=== PATIENT | male | born 1970 | race Hispanic/Latino ===

== ENCOUNTER 2021-03-26 11:13 | Inpatient (IN) | payer SELFPAY ==
[~2021-03-26] VITALS: Ht 175.3 cm; Wt 125.4 kg
[2021-03-26] MEDS ORDERED: DEXAMETHASONE SOD PHOS 10 MG/1 ML VIAL IV ONE (11:30)
[2021-03-26] MEDS ORDERED: ACETAMINOPHEN 325 MG TAB PO ONE (11:45)
[2021-03-26] MEDS ORDERED: LACTATED RINGER'S 1,000 ML INJ ONE (11:45)
[2021-03-26 12:00] LABS: BASOPHILS % 0.2 % (0.0-1.0); HEMATOCRIT 39.2 % (38.2-49.6); HEMOGLOBIN 13.2 g/dL (14.0-18.0); LYMPHOCYTES # (AUTO) 1.3 (1.0-3.2); LYMPHOCYTES % 15.8 % (18.0-39.1); MEAN CORPUSCULAR HEMOGLOBIN 28.9 pg (28-32); MEAN CORPUSCULAR HGB CONC 33.7 g/dL (31-35); MONOCYTES # (AUTO) 0.5 (0.2-0.8); MONOCYTES % 6.6 % (4.4-11.3); NEUTROPHILS # (AUTO) 6.3 (2.1-6.9); NEUTROPHILS % 76.3 % (38.7-80.0); PLATELET COUNT 358 x10e3/uL (140-360); RED BLOOD COUNT 4.56 x10e6/uL (4.3-5.7); RED CELL DISTRIBUTION WIDTH 13.3 % (11.7-14.4)
[2021-03-26] MEDS ORDERED: ETOMIDATE 2 MG/ML 10 ML INJ IV ONE (12:13)
[2021-03-26] MEDS ORDERED: WATER STERILE 10 ML VIAL ONE (12:13)
[2021-03-26] MEDS ORDERED: MIDAZOLAM HCL 2 MG/2 ML VIAL ONE (12:13)
[2021-03-26] MEDS ORDERED: SUCCINYLCHOLINE CHLORIDE 20 MG/ML 10ML VIAL ONE (12:13)
[2021-03-26] MEDS ORDERED: VECURONIUM BROMIDE FOR INJ 20 MG VIAL ONE (12:13)
[2021-03-26 12:36] LABS: ANION GAP 19.6 mmol/L (8-16); CALCIUM 8.7 mg/dL (8.4-10.2); CREATININE, SERUM 0.79 mg/dL (0.72-1.25); POTASSIUM 3.6 mmol/L (3.5-5.1)
[2021-03-26] MEDS: SODIUM CHLORIDE 0.9% 1000ML 1,000 ML IV SCH (13:22)
[2021-03-26] MEDS ORDERED: IOPAMIDOL 370 MG/ML 200 ML INFUS..BTL INJ ONE ×2 (13:29→13:56)
[2021-03-26] MEDS ORDERED: SODIUM CHLORIDE 0.9% 50ML 50 ML ONE ×2 (13:29→13:55)
[2021-03-26] MEDS ORDERED: REMDESIVIR IV ONE ×2 (15:45→16:20)
[2021-03-26] MEDS ORDERED: SODIUM CHLORIDE 0.9% IV ONE (15:45)
[2021-03-26] MEDS ORDERED: ZOLPIDEM TARTRATE 5 MG TAB PO PRN (15:45)
[2021-03-26] MEDS ORDERED: SODIUM CHLORIDE 0.9% 100 ML ONE (16:20)
[2021-03-26] MEDS: CEFTRIAXONE 1 GM in SODIUM CHLORIDE 0.9% 50ML 50 ML IV SCH (17:17)
[2021-03-26] MEDS: ACETAMINOPHEN 325 MG TAB PO PRN (20:57)
[2021-03-26] MEDS: ENOXAPARIN SOD INJ 40 MG/0.4 ML SYR SC SCH (20:57)
[2021-03-27] MEDS: SODIUM CHLORIDE 0.9% 1000ML 1,000 ML IV SCH ×4 (03:45→19:45)
[2021-03-27 09:07] LABS: BASOPHILS % 0.1 % (0.0-1.0); HEMATOCRIT 34.6 % (38.2-49.6); HEMOGLOBIN 11.5 g/dL (14.0-18.0); LYMPHOCYTES # (AUTO) 1.2 (1.0-3.2); LYMPHOCYTES % 13.3 % (18.0-39.1); MEAN CORPUSCULAR HGB CONC 33.2 g/dL (31-35); MEAN CORPUSCULAR VOLUME 87.2 fL (81-99); MONOCYTES # (AUTO) 0.4 (0.2-0.8); MONOCYTES % 4.5 % (4.4-11.3); NEUTROPHILS # (AUTO) 7.4 (2.1-6.9); NEUTROPHILS % 81.2 % (38.7-80.0); PLATELET COUNT 357 x10e3/uL (140-360); RED BLOOD COUNT 3.97 x10e6/uL (4.3-5.7); RED CELL DISTRIBUTION WIDTH 13.5 % (11.7-14.4)
[2021-03-27] MEDS: ZINC SULFATE 220 MG CAP PO SCH (09:13)
[2021-03-27] MEDS: ENOXAPARIN SOD INJ 40 MG/0.4 ML SYR SC SCH ×2 (09:13→20:09)
[2021-03-27 09:35] LABS: ANION GAP 15.7 mmol/L (8-16); CALCIUM 9.3 mg/dL (8.4-10.2); CREATININE, SERUM 0.63 mg/dL (0.72-1.25); POTASSIUM 3.7 mmol/L (3.5-5.1)
[2021-03-27 10:43] LABS: BAND NEUTROPHILS % (MANUAL) 1 %; LYMPHOCYTES % (MANUAL) 10 % (19-48); MONOCYTES % (MANUAL) 4 % (3.4-9.0); NEUTROPHILS % (MANUAL) 83 % (40-74); PLATELET ESTIMATE ADEQUATE; PLATELET MORPHOLOGY COMMENT NORMAL; RBC MORPHOLOGY COMMENT NORMAL
[2021-03-27 10:48] LABS: CHOL/HDL RATIO 5.7 (3.9-4.7)
[2021-03-27] MEDS: REMDESIVIR 100MG 100 MG in SODIUM CHLORIDE 0.9% 100 ML IV SCH (15:11)
[2021-03-27] MEDS: CEFTRIAXONE 1 GM in SODIUM CHLORIDE 0.9% 50ML 50 ML IV SCH (15:11)
[2021-03-27] MEDS: DEXAMETHASONE SOD PHOS 10 MG/1 ML VIAL IV SCH (15:11)
[2021-03-27] MEDS: ACETAMINOPHEN 325 MG TAB PO PRN (15:12)
[2021-03-27] MEDS ORDERED: REMDESIVIR 100 MG IV SCH (15:45)
[2021-03-28] MEDS: SODIUM CHLORIDE 0.9% 1000ML 1,000 ML IV SCH ×3 (03:45→14:29)
[2021-03-28] MEDS: ZINC SULFATE 220 MG CAP PO SCH (09:00)
[2021-03-28] MEDS: ENOXAPARIN SOD INJ 40 MG/0.4 ML SYR SC SCH ×2 (09:00→20:31)
[2021-03-28] MEDS: DEXAMETHASONE SOD PHOS 10 MG/1 ML VIAL IV SCH (09:00)
[2021-03-28] MEDS: CEFTRIAXONE 1 GM in SODIUM CHLORIDE 0.9% 50ML 50 ML IV SCH (14:30)
[2021-03-28] MEDS: REMDESIVIR 100MG 100 MG in SODIUM CHLORIDE 0.9% 100 ML IV SCH (15:00)
[2021-03-28] MEDS: ACETAMINOPHEN 325 MG TAB PO PRN (19:14)
[2021-03-29] MEDS: ACETAMINOPHEN 325 MG TAB PO PRN ×2 (03:38→21:41)
[2021-03-29] MEDS: ONDANSETRON HCL INJ 2MG/ML 2ML 2 MG/ML VIAL IV PRN (05:19)
[2021-03-29 05:58] LABS: BASOPHILS % 0.2 % (0.0-1.0); EOSINOPHILS # (AUTO) 0.1 (0.0-0.4); EOSINOPHILS % 0.4 % (0.0-6.0); HEMATOCRIT 38.8 % (38.2-49.6); LYMPHOCYTES # (AUTO) 1.5 (1.0-3.2); LYMPHOCYTES % 12.9 % (18.0-39.1); MEAN CORPUSCULAR HEMOGLOBIN 28.8 pg (28-32); MEAN CORPUSCULAR HGB CONC 33.5 g/dL (31-35); MONOCYTES # (AUTO) 0.2 (0.2-0.8); NEUTROPHILS # (AUTO) 9.8 (2.1-6.9); NEUTROPHILS % 83.2 % (38.7-80.0); PLATELET COUNT 377 x10e3/uL (140-360); RED BLOOD COUNT 4.51 x10e6/uL (4.3-5.7); RED CELL DISTRIBUTION WIDTH 13.3 % (11.7-14.4)
[2021-03-29 06:15] LABS: ALBUMIN 2.6 g/dL (3.5-5.0); ALBUMIN/GLOBULIN RATIO 0.6 (0.8-2.0); ANION GAP 17.8 mmol/L (8-16); CALCIUM 9.3 mg/dL (8.4-10.2); CREATININE, SERUM 0.72 mg/dL (0.72-1.25); POTASSIUM 3.8 mmol/L (3.5-5.1)
[2021-03-29] MEDS ORDERED: ACETAMINOPHEN 325 MG TAB PO ONE (06:30)
[2021-03-29] MEDS: SODIUM CHLORIDE 0.9% 1000ML 1,000 ML IV SCH ×2 (09:32→21:33)
[2021-03-29] MEDS: ZINC SULFATE 220 MG CAP PO SCH (09:32)
[2021-03-29] MEDS: ENOXAPARIN SOD INJ 40 MG/0.4 ML SYR SC SCH ×2 (09:32→21:32)
[2021-03-29] MEDS: DEXAMETHASONE SOD PHOS 10 MG/1 ML VIAL IV SCH (09:32)
[2021-03-29] MEDS: REMDESIVIR 100MG 100 MG in SODIUM CHLORIDE 0.9% 100 ML IV SCH (14:49)
[2021-03-29] MEDS: CEFTRIAXONE 1 GM in SODIUM CHLORIDE 0.9% 50ML 50 ML IV SCH (15:49)
[2021-03-29 22:00] VITALS: BP 122/73
[2021-03-29 23:00] VITALS: BP 115/77
[2021-03-30] VITALS (25 sets, daily range): BP systolic 99–126; BP diastolic 55–81
[2021-03-30] MEDS: ONDANSETRON HCL INJ 2MG/ML 2ML 2 MG/ML VIAL IV PRN (05:48)
[2021-03-30 06:17] LABS: BASOPHILS % 0.1 % (0.0-1.0); EOSINOPHILS # (AUTO) 0.1 (0.0-0.4); EOSINOPHILS % 1.1 % (0.0-6.0); HEMATOCRIT 36.4 % (38.2-49.6); HEMOGLOBIN 12.2 g/dL (14.0-18.0); LYMPHOCYTES # (AUTO) 1.1 (1.0-3.2); LYMPHOCYTES % 13.1 % (18.0-39.1); MEAN CORPUSCULAR HEMOGLOBIN 28.6 pg (28-32); MEAN CORPUSCULAR HGB CONC 33.5 g/dL (31-35); MEAN CORPUSCULAR VOLUME 85.4 fL (81-99); MONOCYTES # (AUTO) 0.2 (0.2-0.8); NEUTROPHILS # (AUTO) 6.7 (2.1-6.9); NEUTROPHILS % 82.5 % (38.7-80.0); PLATELET COUNT 257 x10e3/uL (140-360); RED BLOOD COUNT 4.26 x10e6/uL (4.3-5.7); RED CELL DISTRIBUTION WIDTH 13.4 % (11.7-14.4)
[2021-03-30 07:15] LABS: CALCIUM 9.1 mg/dL (8.4-10.2); CREATININE, SERUM 0.63 mg/dL (0.72-1.25)
[2021-03-30] MEDS: ACETAMINOPHEN 325 MG TAB PO PRN (07:43)
[2021-03-30] MEDS: DEXAMETHASONE SOD PHOS 10 MG/1 ML VIAL IV SCH (08:55)
[2021-03-30] MEDS: ZINC SULFATE 220 MG CAP PO SCH (08:56)
[2021-03-30] MEDS: BARICITINIB 2 MG TABLET PO SCH (08:56)
[2021-03-30] MEDS: ENOXAPARIN SOD INJ 40 MG/0.4 ML SYR SC SCH ×2 (08:56→20:46)
[2021-03-30] MEDS ORDERED: GUAIFENESIN/CODEINE 10 ML CUP PO PRN (14:00)
[2021-03-30] MEDS: REMDESIVIR 100MG 100 MG in SODIUM CHLORIDE 0.9% 100 ML IV SCH (15:11)
[2021-03-30] MEDS: GUAIFENESIN/CODEINE 5 ML LIQD PO PRN ×2 (15:12→20:46)
[2021-03-30] MEDS: SODIUM CHLORIDE 0.9% 1000ML 1,000 ML IV SCH (15:12)
[2021-03-31] VITALS (25 sets, daily range): BP systolic 98–137; BP diastolic 59–83
[2021-03-31] MEDS: ONDANSETRON HCL INJ 2MG/ML 2ML 2 MG/ML VIAL IV PRN (03:38)
[2021-03-31] MEDS: ACETAMINOPHEN 325 MG TAB PO PRN ×2 (03:38→16:08)
[2021-03-31 05:12] LABS: BASOPHILS % 0.1 % (0.0-1.0); EOSINOPHILS # (AUTO) 0.2 (0.0-0.4); EOSINOPHILS % 1.4 % (0.0-6.0); HEMATOCRIT 36.2 % (38.2-49.6); LYMPHOCYTES # (AUTO) 1.3 (1.0-3.2); LYMPHOCYTES % 11.7 % (18.0-39.1); MEAN CORPUSCULAR HEMOGLOBIN 28.6 pg (28-32); MEAN CORPUSCULAR HGB CONC 33.1 g/dL (31-35); MEAN CORPUSCULAR VOLUME 86.2 fL (81-99); MONOCYTES # (AUTO) 0.3 (0.2-0.8); NEUTROPHILS # (AUTO) 8.9 (2.1-6.9); NEUTROPHILS % 82.5 % (38.7-80.0); PLATELET COUNT 215 x10e3/uL (140-360); RED CELL DISTRIBUTION WIDTH 13.4 % (11.7-14.4)
[2021-03-31 05:47] LABS: ANION GAP 15.9 mmol/L (8-16); CALCIUM 9.1 mg/dL (8.4-10.2); CREATININE, SERUM 0.65 mg/dL (0.72-1.25); POTASSIUM 3.9 mmol/L (3.5-5.1)
[2021-03-31] MEDS: DEXAMETHASONE SOD PHOS 10 MG/1 ML VIAL IV SCH (08:29)
[2021-03-31] MEDS: BARICITINIB 2 MG TABLET PO SCH (08:29)
[2021-03-31] MEDS: ENOXAPARIN SOD INJ 40 MG/0.4 ML SYR SC SCH ×2 (08:30→21:43)
[2021-03-31] MEDS ORDERED: ENOXAPARIN SOD INJ 40 MG/0.4 ML SYR SC SCH (10:00)
[2021-03-31] MEDS: FAMOTIDINE 20 MG/2 ML VIAL IV SCH ×2 (10:30→17:22)
[2021-03-31] MEDS: ZINC SULFATE 220 MG CAP PO SCH (10:30)
[2021-03-31] MEDS: GUAIFENESIN/CODEINE 5 ML LIQD PO PRN ×2 (11:21→22:01)
[2021-03-31] MEDS: SODIUM CHLORIDE 0.9% 1000ML 1,000 ML IV SCH (21:46)
[2021-04-01] VITALS (25 sets, daily range): BP systolic 97–126; BP diastolic 67–89
[2021-04-01] MEDS: ONDANSETRON HCL INJ 2MG/ML 2ML 2 MG/ML VIAL IV PRN (04:02)
[2021-04-01 06:08] LABS: BASOPHILS % 0.1 % (0.0-1.0); EOSINOPHILS # (AUTO) 0.2 (0.0-0.4); EOSINOPHILS % 1.1 % (0.0-6.0); HEMATOCRIT 38.8 % (38.2-49.6); HEMOGLOBIN 12.9 g/dL (14.0-18.0); LYMPHOCYTES # (AUTO) 1.5 (1.0-3.2); LYMPHOCYTES % 10.1 % (18.0-39.1); MEAN CORPUSCULAR HEMOGLOBIN 28.7 pg (28-32); MEAN CORPUSCULAR HGB CONC 33.2 g/dL (31-35); MEAN CORPUSCULAR VOLUME 86.2 fL (81-99); MONOCYTES # (AUTO) 0.4 (0.2-0.8); MONOCYTES % 2.9 % (4.4-11.3); NEUTROPHILS # (AUTO) 12.6 (2.1-6.9); NEUTROPHILS % 84.2 % (38.7-80.0); PLATELET COUNT 223 x10e3/uL (140-360); RED CELL DISTRIBUTION WIDTH 13.2 % (11.7-14.4)
[2021-04-01 06:41] LABS: ALBUMIN 2.3 g/dL (3.5-5.0); ALBUMIN/GLOBULIN RATIO 0.5 (0.8-2.0); ANION GAP 15.5 mmol/L (8-16); CALCIUM 8.9 mg/dL (8.4-10.2); CREATININE, SERUM 0.61 mg/dL (0.72-1.25); POTASSIUM 3.5 mmol/L (3.5-5.1)
[2021-04-01] MEDS: BARICITINIB 2 MG TABLET PO SCH (09:00)
[2021-04-01] MEDS: ZINC SULFATE 220 MG CAP PO SCH (10:25)
[2021-04-01] MEDS: ENOXAPARIN SOD INJ 40 MG/0.4 ML SYR SC SCH ×2 (10:25→20:15)
[2021-04-01] MEDS: FAMOTIDINE 20 MG/2 ML VIAL IV SCH ×2 (10:25→16:11)
[2021-04-01] MEDS: DEXAMETHASONE SOD PHOS 10 MG/1 ML VIAL IV SCH (10:25)
[2021-04-01] MEDS: ACETAMINOPHEN 325 MG TAB PO PRN ×2 (15:02→20:20)
[2021-04-01] MEDS: SODIUM CHLORIDE 0.9% 1000ML 1,000 ML IV SCH (16:09)
[2021-04-02] VITALS (24 sets, daily range): BP systolic 101–128; BP diastolic 57–81
[2021-04-02] MEDS: ACETAMINOPHEN 325 MG TAB PO PRN (05:30)
[2021-04-02 05:52] LABS: BASOPHILS % 0.2 % (0.0-1.0); EOSINOPHILS # (AUTO) 0.1 (0.0-0.4); EOSINOPHILS % 0.8 % (0.0-6.0); HEMATOCRIT 37.4 % (38.2-49.6); HEMOGLOBIN 12.4 g/dL (14.0-18.0); LYMPHOCYTES # (AUTO) 1.3 (1.0-3.2); LYMPHOCYTES % 10.9 % (18.0-39.1); MEAN CORPUSCULAR HEMOGLOBIN 28.8 pg (28-32); MEAN CORPUSCULAR HGB CONC 33.2 g/dL (31-35); MEAN CORPUSCULAR VOLUME 86.8 fL (81-99); MONOCYTES # (AUTO) 0.3 (0.2-0.8); MONOCYTES % 2.3 % (4.4-11.3); NEUTROPHILS # (AUTO) 10.2 (2.1-6.9); NEUTROPHILS % 84.8 % (38.7-80.0); PLATELET COUNT 210 x10e3/uL (140-360); RED BLOOD COUNT 4.31 x10e6/uL (4.3-5.7); RED CELL DISTRIBUTION WIDTH 13.2 % (11.7-14.4)
[2021-04-02 06:20] LABS: ALBUMIN 2.2 g/dL (3.5-5.0); ALBUMIN/GLOBULIN RATIO 0.5 (0.8-2.0); ANION GAP 16.8 mmol/L (8-16); CALCIUM 9.2 mg/dL (8.4-10.2); CREATININE, SERUM 0.6 mg/dL (0.72-1.25); POTASSIUM 3.8 mmol/L (3.5-5.1)
[2021-04-02] MEDS: FAMOTIDINE 20 MG/2 ML VIAL IV SCH ×2 (09:00→16:02)
[2021-04-02] MEDS: ENOXAPARIN SOD INJ 40 MG/0.4 ML SYR SC SCH ×2 (09:00→20:18)
[2021-04-02] MEDS: ZINC SULFATE 220 MG CAP PO SCH (09:00)
[2021-04-02] MEDS: BARICITINIB 2 MG TABLET PO SCH (09:00)
[2021-04-02] MEDS: DEXAMETHASONE SOD PHOS 10 MG/1 ML VIAL IV SCH (09:00)
[2021-04-03] VITALS (24 sets, daily range): BP systolic 90–129; BP diastolic 62–80
[2021-04-03] MEDS: GUAIFENESIN/CODEINE 5 ML LIQD PO PRN (00:01)
[2021-04-03] MEDS: ACETAMINOPHEN 325 MG TAB PO PRN ×2 (00:01→06:34)
[2021-04-03 05:44] LABS: BASOPHILS % 0.2 % (0.0-1.0); EOSINOPHILS # (AUTO) 0.1 (0.0-0.4); EOSINOPHILS % 0.5 % (0.0-6.0); HEMATOCRIT 37.6 % (38.2-49.6); HEMOGLOBIN 12.9 g/dL (14.0-18.0); LYMPHOCYTES # (AUTO) 1.4 (1.0-3.2); LYMPHOCYTES % 10.9 % (18.0-39.1); MEAN CORPUSCULAR HEMOGLOBIN 29.3 pg (28-32); MEAN CORPUSCULAR HGB CONC 34.3 g/dL (31-35); MEAN CORPUSCULAR VOLUME 85.3 fL (81-99); MONOCYTES # (AUTO) 0.4 (0.2-0.8); MONOCYTES % 2.8 % (4.4-11.3); NEUTROPHILS % 84.3 % (38.7-80.0); PLATELET COUNT 195 x10e3/uL (140-360); RED BLOOD COUNT 4.41 x10e6/uL (4.3-5.7); RED CELL DISTRIBUTION WIDTH 13.2 % (11.7-14.4)
[2021-04-03 06:11] LABS: ALBUMIN 2.1 g/dL (3.5-5.0); ALBUMIN/GLOBULIN RATIO 0.4 (0.8-2.0); ANION GAP 18.9 mmol/L (8-16); CALCIUM 9.2 mg/dL (8.4-10.2); CREATININE, SERUM 0.6 mg/dL (0.72-1.25); POTASSIUM 3.9 mmol/L (3.5-5.1)
[2021-04-03] MEDS: FAMOTIDINE 20 MG/2 ML VIAL IV SCH ×2 (08:32→17:01)
[2021-04-03] MEDS: BARICITINIB 2 MG TABLET PO SCH (08:32)
[2021-04-03] MEDS: ENOXAPARIN SOD INJ 40 MG/0.4 ML SYR SC SCH ×2 (08:32→19:56)
[2021-04-03] MEDS: DEXAMETHASONE SOD PHOS 10 MG/1 ML VIAL IV SCH (08:32)
[2021-04-03] MEDS: ZINC SULFATE 220 MG CAP PO SCH (08:32)
[2021-04-03] MEDS: ONDANSETRON HCL INJ 2MG/ML 2ML 2 MG/ML VIAL IV PRN ×2 (12:08→17:01)
[2021-04-04] VITALS (23 sets, daily range): BP systolic 98–112; BP diastolic 63–80
[2021-04-04 05:37] LABS: BASOPHILS % 0.1 % (0.0-1.0); EOSINOPHILS # (AUTO) 0.1 (0.0-0.4); EOSINOPHILS % 1.1 % (0.0-6.0); HEMATOCRIT 39.2 % (38.2-49.6); HEMOGLOBIN 12.9 g/dL (14.0-18.0); LYMPHOCYTES # (AUTO) 1.4 (1.0-3.2); LYMPHOCYTES % 16.5 % (18.0-39.1); MEAN CORPUSCULAR HEMOGLOBIN 28.4 pg (28-32); MEAN CORPUSCULAR HGB CONC 32.9 g/dL (31-35); MEAN CORPUSCULAR VOLUME 86.3 fL (81-99); MONOCYTES # (AUTO) 0.5 (0.2-0.8); MONOCYTES % 5.5 % (4.4-11.3); NEUTROPHILS # (AUTO) 6.4 (2.1-6.9); NEUTROPHILS % 75.4 % (38.7-80.0); PLATELET COUNT 207 x10e3/uL (140-360); RED BLOOD COUNT 4.54 x10e6/uL (4.3-5.7); RED CELL DISTRIBUTION WIDTH 13.2 % (11.7-14.4)
[2021-04-04 05:56] LABS: ALBUMIN 2.1 g/dL (3.5-5.0); ALBUMIN/GLOBULIN RATIO 0.4 (0.8-2.0); ANION GAP 15.7 mmol/L (8-16); CALCIUM 9.3 mg/dL (8.4-10.2); CREATININE, SERUM 0.62 mg/dL (0.72-1.25); POTASSIUM 3.7 mmol/L (3.5-5.1)
[2021-04-04] MEDS: ONDANSETRON HCL INJ 2MG/ML 2ML 2 MG/ML VIAL IV PRN (07:03)
[2021-04-04] MEDS: ACETAMINOPHEN 325 MG TAB PO PRN (07:03)
[2021-04-04] MEDS: DEXAMETHASONE SOD PHOS 10 MG/1 ML VIAL IV SCH (08:09)
[2021-04-04] MEDS: BARICITINIB 2 MG TABLET PO SCH (08:10)
[2021-04-04] MEDS: ENOXAPARIN SOD INJ 40 MG/0.4 ML SYR SC SCH ×2 (08:10→20:42)
[2021-04-04] MEDS: ZINC SULFATE 220 MG CAP PO SCH (08:10)
[2021-04-04] MEDS: FAMOTIDINE 20 MG/2 ML VIAL IV SCH ×2 (08:10→16:09)
[2021-04-04] MEDS: GUAIFENESIN/CODEINE 5 ML LIQD PO PRN (20:42)
[2021-04-05] VITALS (22 sets, daily range): BP systolic 85–154; BP diastolic 57–94
[2021-04-05] MEDS: FENTANYL 2000MCG/NS 250 250 ML IV SCH ×3 (07:41→22:44)
[2021-04-05] MEDS: MIDAZOLAM HCL 5MG/ML 10ML VIAL 100 ML IV PRN ×3 (07:42→18:56)
[2021-04-05] MEDS: ROCURONIUM 1250MG/NS 250 250 ML IV PRN (07:43)
[2021-04-05] MEDS ORDERED: LACTATED RINGER'S 500 ML INJ ONE (08:15)
[2021-04-05] MEDS: DEXAMETHASONE SOD PHOS 10 MG/1 ML VIAL IV SCH (08:32)
[2021-04-05] MEDS: FAMOTIDINE 20 MG/2 ML VIAL IV SCH ×2 (08:32→16:46)
[2021-04-05] MEDS: BARICITINIB 2 MG TABLET PO SCH (08:33)
[2021-04-05] MEDS: ENOXAPARIN SOD INJ 40 MG/0.4 ML SYR SC SCH ×2 (08:33→21:01)
[2021-04-05] MEDS: ZINC SULFATE 220 MG CAP PO SCH (08:33)
[2021-04-05 09:19] LABS: ABG PH 7.35 (7.35-7.45)
[2021-04-05 09:20] LABS: ABG HCO3 30 mmol/L (22-26); ABG PCO2 67 mmHg (35-45); ABG PO2 69 mmHg (80-105); ABG TCO2 32
[2021-04-05 10:40] LABS: BASOPHILS % 0.2 % (0.0-1.0); EOSINOPHILS # (AUTO) 0.1 (0.0-0.4); EOSINOPHILS % 0.5 % (0.0-6.0); HEMATOCRIT 40.9 % (38.2-49.6); HEMOGLOBIN 13.1 g/dL (14.0-18.0); LYMPHOCYTES # (AUTO) 0.8 (1.0-3.2); MEAN CORPUSCULAR HEMOGLOBIN 28.2 pg (28-32); MEAN CORPUSCULAR VOLUME 88.1 fL (81-99); MONOCYTES # (AUTO) 0.6 (0.2-0.8); MONOCYTES % 5.6 % (4.4-11.3); NEUTROPHILS # (AUTO) 9.2 (2.1-6.9); NEUTROPHILS % 85.1 % (38.7-80.0); PLATELET COUNT 185 x10e3/uL (140-360); RED BLOOD COUNT 4.64 x10e6/uL (4.3-5.7); RED CELL DISTRIBUTION WIDTH 13.4 % (11.7-14.4)
[2021-04-05 10:59] LABS: ANION GAP 16.4 mmol/L (8-16); CALCIUM 8.5 mg/dL (8.4-10.2); CREATININE, SERUM 0.65 mg/dL (0.72-1.25); POTASSIUM 3.4 mmol/L (3.5-5.1)
[2021-04-05] MEDS: NOREPINEPHRINE 8 MG/D5W 250 ML 250 ML IV SCH (16:46)
[2021-04-06] VITALS (26 sets, daily range): BP systolic 96–117; BP diastolic 65–83
[2021-04-06] MEDS: MIDAZOLAM HCL 5MG/ML 10ML VIAL 100 ML IV PRN ×2 (02:10→21:52)
[2021-04-06] MEDS: ROCURONIUM 1250MG/NS 250 250 ML IV PRN (05:00)
[2021-04-06 06:04] LABS: BASOPHILS % 0.2 % (0.0-1.0); EOSINOPHILS # (AUTO) 0.1 (0.0-0.4); EOSINOPHILS % 1.8 % (0.0-6.0); HEMATOCRIT 35.4 % (38.2-49.6); HEMOGLOBIN 11.7 g/dL (14.0-18.0); LYMPHOCYTES # (AUTO) 1.4 (1.0-3.2); MEAN CORPUSCULAR HEMOGLOBIN 29.5 pg (28-32); MEAN CORPUSCULAR HGB CONC 33.1 g/dL (31-35); MEAN CORPUSCULAR VOLUME 89.2 fL (81-99); MONOCYTES # (AUTO) 0.6 (0.2-0.8); MONOCYTES % 12.5 % (4.4-11.3); NEUTROPHILS # (AUTO) 2.9 (2.1-6.9); NEUTROPHILS % 55.7 % (38.7-80.0); PLATELET COUNT 169 x10e3/uL (140-360); RED BLOOD COUNT 3.97 x10e6/uL (4.3-5.7); RED CELL DISTRIBUTION WIDTH 13.4 % (11.7-14.4)
[2021-04-06 06:27] LABS: ALBUMIN/GLOBULIN RATIO 0.5 (0.8-2.0); ANION GAP 13.1 mmol/L (8-16); CREATININE, SERUM 0.58 mg/dL (0.72-1.25); POTASSIUM 4.1 mmol/L (3.5-5.1)
[2021-04-06] MEDS: FAMOTIDINE 20 MG/2 ML VIAL IV SCH ×2 (08:31→16:02)
[2021-04-06] MEDS: ZINC SULFATE 220 MG CAP PO SCH (08:31)
[2021-04-06] MEDS: BARICITINIB 2 MG TABLET PO SCH (08:31)
[2021-04-06] MEDS: ENOXAPARIN SOD INJ 40 MG/0.4 ML SYR SC SCH ×2 (08:31→21:12)
[2021-04-06 09:46] LABS: ABG HCO3 31 mmol/L (22-26); ABG PCO2 49 mmHg (35-45); ABG PH 7.41 (7.35-7.45); ABG PO2 83 mmHg (80-105); ABG TCO2 33
[2021-04-06] MEDS: FENTANYL 2000MCG/NS 250 250 ML IV SCH ×2 (15:04→22:45)
[2021-04-06] MEDS: NOREPINEPHRINE 8 MG/D5W 250 ML 250 ML IV SCH (15:05)
[2021-04-06] MEDS ORDERED: NOREPINEPHRINE 8 MG/D5W 250 ML 250 ML IV PRN (15:15)
[2021-04-06] MEDS ORDERED: DIATRIZOATE MEGL/DIATRIZOA SOD 30 ML BTL PO ONE (17:41)
[2021-04-07] VITALS (26 sets, daily range): BP systolic 89–161; BP diastolic 59–102
[2021-04-07] MEDS: ROCURONIUM 1250MG/NS 250 250 ML IV PRN (03:26)
[2021-04-07] MEDS: MIDAZOLAM HCL 5MG/ML 10ML VIAL 100 ML IV PRN ×3 (04:06→17:01)
[2021-04-07 06:58] LABS: BASOPHILS % 0.2 % (0.0-1.0); EOSINOPHILS # (AUTO) 0.2 (0.0-0.4); HEMATOCRIT 38.2 % (38.2-49.6); HEMOGLOBIN 12.4 g/dL (14.0-18.0); LYMPHOCYTES # (AUTO) 1.4 (1.0-3.2); LYMPHOCYTES % 24.2 % (18.0-39.1); MEAN CORPUSCULAR HEMOGLOBIN 28.9 pg (28-32); MEAN CORPUSCULAR HGB CONC 32.5 g/dL (31-35); MONOCYTES # (AUTO) 0.5 (0.2-0.8); MONOCYTES % 9.4 % (4.4-11.3); NEUTROPHILS # (AUTO) 3.5 (2.1-6.9); NEUTROPHILS % 60.9 % (38.7-80.0); PLATELET COUNT 221 x10e3/uL (140-360); RED BLOOD COUNT 4.29 x10e6/uL (4.3-5.7); RED CELL DISTRIBUTION WIDTH 13.3 % (11.7-14.4)
[2021-04-07 07:12] LABS: ALBUMIN 1.9 g/dL (3.5-5.0); ALBUMIN/GLOBULIN RATIO 0.4 (0.8-2.0); ANION GAP 15.7 mmol/L (8-16); CALCIUM 8.5 mg/dL (8.4-10.2); CREATININE, SERUM 0.58 mg/dL (0.72-1.25); POTASSIUM 3.7 mmol/L (3.5-5.1)
[2021-04-07 08:37] LABS: ABG PCO2 45 mmHg (35-45); ABG PH 7.44 (7.35-7.45); ABG PO2 97 mmHg (80-105)
[2021-04-07 08:38] LABS: ABG HCO3 30 mmol/L (22-26); ABG TCO2 31
[2021-04-07] MEDS: FAMOTIDINE 20 MG/2 ML VIAL IV SCH ×2 (10:32→16:59)
[2021-04-07] MEDS: BARICITINIB 2 MG TABLET PO SCH (10:33)
[2021-04-07] MEDS: ZINC SULFATE 220 MG CAP PO SCH (10:33)
[2021-04-07] MEDS: ENOXAPARIN SOD INJ 40 MG/0.4 ML SYR SC SCH ×2 (10:33→20:10)
[2021-04-07] MEDS: FENTANYL 2000MCG/NS 250 250 ML IV SCH ×2 (12:59→17:05)
[2021-04-08] VITALS (24 sets, daily range): BP systolic 84–172; BP diastolic 53–89
[2021-04-08] MEDS: ROCURONIUM 1250MG/NS 250 250 ML IV PRN (01:27)
[2021-04-08] MEDS: FENTANYL 2000MCG/NS 250 250 ML IV SCH ×2 (03:43→18:48)
[2021-04-08 06:24] LABS: BASOPHILS % 0.2 % (0.0-1.0); EOSINOPHILS # (AUTO) 0.2 (0.0-0.4); EOSINOPHILS % 3.1 % (0.0-6.0); HEMATOCRIT 38.8 % (38.2-49.6); HEMOGLOBIN 12.7 g/dL (14.0-18.0); LYMPHOCYTES # (AUTO) 1.3 (1.0-3.2); LYMPHOCYTES % 24.3 % (18.0-39.1); MEAN CORPUSCULAR HEMOGLOBIN 28.5 pg (28-32); MEAN CORPUSCULAR HGB CONC 32.7 g/dL (31-35); MONOCYTES # (AUTO) 0.7 (0.2-0.8); MONOCYTES % 12.6 % (4.4-11.3); NEUTROPHILS % 57.3 % (38.7-80.0); PLATELET COUNT 244 x10e3/uL (140-360); RED BLOOD COUNT 4.46 x10e6/uL (4.3-5.7); RED CELL DISTRIBUTION WIDTH 13.4 % (11.7-14.4)
[2021-04-08] MEDS: MIDAZOLAM HCL 5MG/ML 10ML VIAL 100 ML IV PRN ×3 (06:37→20:09)
[2021-04-08 06:48] LABS: ALBUMIN 1.8 g/dL (3.5-5.0); ALBUMIN/GLOBULIN RATIO 0.4 (0.8-2.0); CALCIUM 8.9 mg/dL (8.4-10.2); CREATININE, SERUM 0.55 mg/dL (0.72-1.25)
[2021-04-08 08:42] LABS: ABG HCO3 31 mmol/L (22-26); ABG PCO2 49 mmHg (35-45); ABG PO2 93 mmHg (80-105); ABG TCO2 32
[2021-04-08] MEDS: BARICITINIB 2 MG TABLET PO SCH (09:00)
[2021-04-08] MEDS: ZINC SULFATE 220 MG CAP PO SCH (09:00)
[2021-04-08] MEDS: ENOXAPARIN SOD INJ 40 MG/0.4 ML SYR SC SCH ×2 (09:04→20:34)
[2021-04-08] MEDS: FAMOTIDINE 20 MG/2 ML VIAL IV SCH ×2 (09:04→16:18)
[2021-04-09] VITALS (26 sets, daily range): BP systolic 91–123; BP diastolic 49–65
[2021-04-09] MEDS: MIDAZOLAM HCL 5MG/ML 10ML VIAL 100 ML IV PRN ×3 (04:17→19:03)
[2021-04-09 06:03] LABS: BASOPHILS % 0.4 % (0.0-1.0); EOSINOPHILS # (AUTO) 0.2 (0.0-0.4); EOSINOPHILS % 3.1 % (0.0-6.0); HEMATOCRIT 34.9 % (38.2-49.6); HEMOGLOBIN 11.9 g/dL (14.0-18.0); LYMPHOCYTES % 19.2 % (18.0-39.1); MEAN CORPUSCULAR HEMOGLOBIN 30.1 pg (28-32); MEAN CORPUSCULAR HGB CONC 34.1 g/dL (31-35); MEAN CORPUSCULAR VOLUME 88.4 fL (81-99); MONOCYTES # (AUTO) 0.6 (0.2-0.8); MONOCYTES % 11.8 % (4.4-11.3); NEUTROPHILS # (AUTO) 3.4 (2.1-6.9); NEUTROPHILS % 62.9 % (38.7-80.0); PLATELET COUNT 210 x10e3/uL (140-360); RED BLOOD COUNT 3.95 x10e6/uL (4.3-5.7); RED CELL DISTRIBUTION WIDTH 14.1 % (11.7-14.4)
[2021-04-09 06:32] LABS: ALBUMIN 1.6 g/dL (3.5-5.0); ALBUMIN/GLOBULIN RATIO 0.3 (0.8-2.0); ANION GAP 15.9 mmol/L (8-16); CALCIUM 8.6 mg/dL (8.4-10.2); CREATININE, SERUM 0.55 mg/dL (0.72-1.25); POTASSIUM 3.9 mmol/L (3.5-5.1)
[2021-04-09] MEDS: ENOXAPARIN SOD INJ 40 MG/0.4 ML SYR SC SCH ×2 (08:25→20:17)
[2021-04-09] MEDS: ZINC SULFATE 220 MG CAP PO SCH (08:25)
[2021-04-09] MEDS: FAMOTIDINE 20 MG/2 ML VIAL IV SCH ×2 (08:25→17:00)
[2021-04-09] MEDS: BARICITINIB 2 MG TABLET PO SCH (08:25)
[2021-04-09] MEDS: FENTANYL 2000MCG/NS 250 250 ML IV SCH (09:00)
[2021-04-09 09:08] LABS: ABG HCO3 27 mmol/L (22-26); ABG PCO2 37 mmHg (35-45); ABG PH 7.48 (7.35-7.45); ABG PO2 118 mmHg (80-105); ABG TCO2 28
[2021-04-09 13:30] LABS: ABG HCO3 30 mmol/L (22-26); ABG PCO2 47 mmHg (35-45); ABG PH 7.41 (7.35-7.45); ABG PO2 93 mmHg (80-105); ABG TCO2 31
[2021-04-10] VITALS (26 sets, daily range): BP systolic 93–170; BP diastolic 50–82
[2021-04-10] MEDS: MIDAZOLAM HCL 5MG/ML 10ML VIAL 100 ML IV PRN ×4 (00:14→17:00)
[2021-04-10] MEDS: ROCURONIUM 1250MG/NS 250 250 ML IV PRN (01:36)
[2021-04-10] MEDS: FENTANYL 2000MCG/NS 250 250 ML IV SCH ×3 (06:01→19:58)
[2021-04-10 06:31] LABS: BASOPHILS % 0.6 % (0.0-1.0); EOSINOPHILS # (AUTO) 0.3 (0.0-0.4); EOSINOPHILS % 4.3 % (0.0-6.0); HEMATOCRIT 33.7 % (38.2-49.6); HEMOGLOBIN 10.6 g/dL (14.0-18.0); LYMPHOCYTES # (AUTO) 1.2 (1.0-3.2); LYMPHOCYTES % 18.1 % (18.0-39.1); MEAN CORPUSCULAR HEMOGLOBIN 28.3 pg (28-32); MEAN CORPUSCULAR HGB CONC 31.5 g/dL (31-35); MEAN CORPUSCULAR VOLUME 89.9 fL (81-99); MONOCYTES # (AUTO) 0.7 (0.2-0.8); MONOCYTES % 10.9 % (4.4-11.3); NEUTROPHILS # (AUTO) 4.1 (2.1-6.9); NEUTROPHILS % 62.1 % (38.7-80.0); PLATELET COUNT 269 x10e3/uL (140-360); RED BLOOD COUNT 3.75 x10e6/uL (4.3-5.7)
[2021-04-10 07:13] LABS: ALBUMIN 1.6 g/dL (3.5-5.0); ALBUMIN/GLOBULIN RATIO 0.4 (0.8-2.0); ANION GAP 12.6 mmol/L (8-16); CALCIUM 8.5 mg/dL (8.4-10.2); CREATININE, SERUM 0.52 mg/dL (0.72-1.25); POTASSIUM 3.6 mmol/L (3.5-5.1)
[2021-04-10] MEDS ORDERED: ENOXAPARIN SOD INJ 40 MG/0.4 ML SYR SC SCH (09:00)
[2021-04-10 09:18] LABS: ABG HCO3 29 mmol/L (22-26); ABG PCO2 45 mmHg (35-45); ABG PH 7.42 (7.35-7.45); ABG PO2 119 mmHg (80-105); ABG TCO2 30
[2021-04-10] MEDS: BARICITINIB 2 MG TABLET PO SCH (09:41)
[2021-04-10] MEDS: FUROSEMIDE INJ 10 MG/ML 4 ML VIAL IV SCH ×2 (09:41→20:53)
[2021-04-10] MEDS: FAMOTIDINE 20 MG/2 ML VIAL IV SCH ×2 (09:41→17:00)
[2021-04-10] MEDS: ZINC SULFATE 220 MG CAP PO SCH (09:41)
[2021-04-10] MEDS: ALBUMIN 25% 25GM 100ML 0.25 GM/ML BTL IV SCH ×2 (09:41→17:33)
[2021-04-10 14:16] LABS: ABG HCO3 32 mmol/L (22-26); ABG PCO2 46 mmHg (35-45); ABG PH 7.45 (7.35-7.45); ABG PO2 78 mmHg (80-105); ABG TCO2 34
[2021-04-10] MEDS: ENOXAPARIN INJ 80 MG/0.8 ML SYR SC SCH (20:53)
[2021-04-10] MEDS: ACETAMINOPHEN 325 MG TAB PO PRN (23:12)
[2021-04-10] MEDS: PROPOFOL IV EMULSION 10MG/ML 100 ML IV PRN (23:54)
[2021-04-10] MEDS ORDERED: PROPOFOL IV EMULSION 10MG/ML 100 ML ONE (23:58)
[2021-04-11] VITALS (25 sets, daily range): BP systolic 101–161; BP diastolic 49–75
[2021-04-11] MEDS: PROPOFOL IV EMULSION 10MG/ML 100 ML IV PRN ×4 (00:21→17:15)
[2021-04-11] MEDS: ALBUMIN 25% 25GM 100ML 0.25 GM/ML BTL IV SCH (02:24)
[2021-04-11] MEDS: MIDAZOLAM HCL 5MG/ML 10ML VIAL 100 ML IV PRN ×5 (03:37→23:34)
[2021-04-11] MEDS: FENTANYL 2000MCG/NS 250 250 ML IV SCH ×4 (03:37→23:52)
[2021-04-11] MEDS: ROCURONIUM 1250MG/NS 250 250 ML IV PRN (04:21)
[2021-04-11 05:46] LABS: HEMATOCRIT 31.4 % (38.2-49.6); HEMOGLOBIN 10.1 g/dL (14.0-18.0); LYMPHOCYTES % 16.5 % (18.0-39.1); MEAN CORPUSCULAR HEMOGLOBIN 28.5 pg (28-32); MEAN CORPUSCULAR HGB CONC 32.2 g/dL (31-35); MEAN CORPUSCULAR VOLUME 88.7 fL (81-99); NEUTROPHILS % 65.5 % (38.7-80.0); PLATELET COUNT 274 x10e3/uL (140-360); RED BLOOD COUNT 3.54 x10e6/uL (4.3-5.7)
[2021-04-11 05:47] LABS: BASOPHILS % 0.4 % (0.0-1.0); EOSINOPHILS # (AUTO) 0.2 (0.0-0.4); LYMPHOCYTES # (AUTO) 1.3 (1.0-3.2); MONOCYTES # (AUTO) 0.8 (0.2-0.8); MONOCYTES % 9.7 % (4.4-11.3); NEUTROPHILS # (AUTO) 5.1 (2.1-6.9)
[2021-04-11 06:14] LABS: ALBUMIN 2.6 g/dL (3.5-5.0); ALBUMIN/GLOBULIN RATIO 0.6 (0.8-2.0); ANION GAP 12.4 mmol/L (8-16); CALCIUM 9.1 mg/dL (8.4-10.2); CREATININE, SERUM 0.6 mg/dL (0.72-1.25); POTASSIUM 3.4 mmol/L (3.5-5.1)
[2021-04-11] MEDS: ENOXAPARIN INJ 80 MG/0.8 ML SYR SC SCH ×2 (08:41→20:58)
[2021-04-11] MEDS: ZINC SULFATE 220 MG CAP PO SCH (08:41)
[2021-04-11] MEDS: FAMOTIDINE 20 MG/2 ML VIAL IV SCH ×2 (08:41→15:55)
[2021-04-11] MEDS: BARICITINIB 2 MG TABLET PO SCH (08:41)
[2021-04-11 09:00] LABS: ABG HCO3 36 mmol/L (22-26); ABG PCO2 64 mmHg (35-45); ABG PH 7.36 (7.35-7.45); ABG PO2 71 mmHg (80-105); ABG TCO2 37
[2021-04-11] MEDS ORDERED: POTASSIUM CHLORIDE 20MEQ/100ML 100 ML IV ONE (14:30)
[2021-04-11] MEDS ORDERED: DEXTROSE 50% SYRINGE 50 ML IV PRN (16:30)
[2021-04-11] MEDS ORDERED: INSULIN LISPRO 100 UNIT/1 ML 3ML VIAL SQ SCH (16:30)
[2021-04-11] MEDS: INSULIN LISPRO 100 UNIT/1 ML 3ML VIAL SQ SCH ×2 (17:50→23:55)
[2021-04-12] VITALS (27 sets, daily range): BP systolic 91–161; BP diastolic 50–81
[2021-04-12] MEDS: PROPOFOL IV EMULSION 10MG/ML 100 ML IV PRN ×6 (01:26→21:24)
[2021-04-12] MEDS: ACETAMINOPHEN 325 MG TAB PO PRN (03:20)
[2021-04-12 06:01] LABS: BASOPHILS # (AUTO) 0.1 (0.0-0.1); BASOPHILS % 0.6 % (0.0-1.0); EOSINOPHILS # (AUTO) 0.4 (0.0-0.4); HEMATOCRIT 31.6 % (38.2-49.6); HEMOGLOBIN 9.8 g/dL (14.0-18.0); LYMPHOCYTES # (AUTO) 1.6 (1.0-3.2); LYMPHOCYTES % 16.2 % (18.0-39.1); MEAN CORPUSCULAR HEMOGLOBIN 28.4 pg (28-32); MEAN CORPUSCULAR VOLUME 91.6 fL (81-99); MONOCYTES # (AUTO) 0.8 (0.2-0.8); NEUTROPHILS # (AUTO) 6.5 (2.1-6.9); NEUTROPHILS % 66.4 % (38.7-80.0); PLATELET COUNT 296 x10e3/uL (140-360); RED BLOOD COUNT 3.45 x10e6/uL (4.3-5.7)
[2021-04-12] MEDS: INSULIN LISPRO 100 UNIT/1 ML 3ML VIAL SQ SCH ×4 (06:02→23:56)
[2021-04-12 06:19] LABS: ALBUMIN 2.2 g/dL (3.5-5.0); ALBUMIN/GLOBULIN RATIO 0.5 (0.8-2.0); ANION GAP 11.8 mmol/L (8-16); CALCIUM 8.8 mg/dL (8.4-10.2); CREATININE, SERUM 0.56 mg/dL (0.72-1.25); POTASSIUM 3.8 mmol/L (3.5-5.1)
[2021-04-12] MEDS: FENTANYL 2000MCG/NS 250 250 ML IV SCH ×3 (06:49→20:30)
[2021-04-12 08:55] LABS: ABG HCO3 37 mmol/L (22-26); ABG PCO2 60 mmHg (35-45); ABG PH 7.39 (7.35-7.45); ABG PO2 71 mmHg (80-105); ABG TCO2 39
[2021-04-12] MEDS: ZINC SULFATE 220 MG CAP PO SCH (09:36)
[2021-04-12] MEDS: BARICITINIB 2 MG TABLET PO SCH (09:36)
[2021-04-12] MEDS: ENOXAPARIN INJ 80 MG/0.8 ML SYR SC SCH ×2 (09:36→21:23)
[2021-04-12] MEDS: FAMOTIDINE 20 MG/2 ML VIAL IV SCH ×2 (09:36→16:37)
[2021-04-12] MEDS: FUROSEMIDE INJ 10 MG/ML 4 ML VIAL IV SCH ×2 (12:24→21:23)
[2021-04-12] MEDS: ALBUMIN 25% 12.5GM 0.25 GM/ML BTL IV SCH ×2 (12:24→20:02)
[2021-04-12] MEDS: MIDAZOLAM HCL 5MG/ML 10ML VIAL 100 ML IV PRN ×2 (12:25→20:31)
[2021-04-13] VITALS (27 sets, daily range): BP systolic 115–139; BP diastolic 61–83
[2021-04-13] MEDS: PROPOFOL IV EMULSION 10MG/ML 100 ML IV PRN ×7 (01:28→22:30)
[2021-04-13] MEDS: MIDAZOLAM HCL 5MG/ML 10ML VIAL 100 ML IV PRN ×4 (01:55→16:44)
[2021-04-13] MEDS: ROCURONIUM 1250MG/NS 250 250 ML IV PRN (01:55)
[2021-04-13] MEDS: FENTANYL 2000MCG/NS 250 250 ML IV SCH ×4 (01:56→22:09)
[2021-04-13] MEDS: ALBUMIN 25% 12.5GM 0.25 GM/ML BTL IV SCH (03:37)
[2021-04-13] MEDS: INSULIN LISPRO 100 UNIT/1 ML 3ML VIAL SQ SCH ×3 (05:53→18:03)
[2021-04-13 06:21] LABS: BASOPHILS # (AUTO) 0.1 (0.0-0.1); BASOPHILS % 0.5 % (0.0-1.0); EOSINOPHILS # (AUTO) 0.5 (0.0-0.4); EOSINOPHILS % 3.7 % (0.0-6.0); HEMATOCRIT 34.2 % (38.2-49.6); HEMOGLOBIN 10.4 g/dL (14.0-18.0); LYMPHOCYTES # (AUTO) 1.7 (1.0-3.2); LYMPHOCYTES % 11.9 % (18.0-39.1); MEAN CORPUSCULAR HEMOGLOBIN 28.3 pg (28-32); MEAN CORPUSCULAR HGB CONC 30.4 g/dL (31-35); MEAN CORPUSCULAR VOLUME 93.2 fL (81-99); MONOCYTES % 6.9 % (4.4-11.3); NEUTROPHILS # (AUTO) 10.6 (2.1-6.9); PLATELET COUNT 373 x10e3/uL (140-360); RED BLOOD COUNT 3.67 x10e6/uL (4.3-5.7)
[2021-04-13 06:47] LABS: ALBUMIN 3.1 g/dL (3.5-5.0); ALBUMIN/GLOBULIN RATIO 0.6 (0.8-2.0); ANION GAP 13.7 mmol/L (8-16); CALCIUM 9.6 mg/dL (8.4-10.2); CREATININE, SERUM 0.59 mg/dL (0.72-1.25); POTASSIUM 3.7 mmol/L (3.5-5.1)
[2021-04-13] MEDS: FAMOTIDINE 20 MG/2 ML VIAL IV SCH ×2 (08:25→17:11)
[2021-04-13] MEDS: ENOXAPARIN INJ 80 MG/0.8 ML SYR SC SCH ×2 (08:25→20:57)
[2021-04-13] MEDS: ZINC SULFATE 220 MG CAP PO SCH (08:25)
[2021-04-13 08:34] LABS: ABG HCO3 44 mmol/L (22-26); ABG PCO2 91 mmHg (35-45); ABG PO2 65 mmHg (80-105); ABG TCO2 47
[2021-04-13] MEDS ORDERED: ALBUMIN 25% 25GM 100ML 0.25 GM/ML BTL IV SCH (10:00)
[2021-04-13] MEDS: FUROSEMIDE INJ 10 MG/ML 4 ML VIAL IV SCH ×2 (10:58→20:56)
[2021-04-13] MEDS: ALBUMIN 25% 25GM 100ML 100 ML IV SCH ×2 (10:59→17:12)
[2021-04-13] MEDS: PIPERACILLIN/TAZOBACTAM 3.375 GM in SODIUM CHLORIDE 0.9% 50ML 50 ML IV SCH ×3 (11:41→22:44)
[2021-04-13] MEDS: BISACODYL 10 MG SUPP PR PRN (12:00)
[2021-04-13] MEDS: ACETAMINOPHEN 325 MG TAB PO PRN ×2 (12:00→17:49)
[2021-04-13] MEDS: LACTULOSE SYRUP 20 GM/30 ML UDC PO PRN (12:27)
[2021-04-14] VITALS (24 sets, daily range): BP systolic 100–129; BP diastolic 62–71
[2021-04-14] MEDS: INSULIN LISPRO 100 UNIT/1 ML 3ML VIAL SQ SCH ×4 (00:02→17:52)
[2021-04-14] MEDS: ALBUMIN 25% 25GM 100ML 100 ML IV SCH (01:16)
[2021-04-14] MEDS: PROPOFOL IV EMULSION 10MG/ML 100 ML IV PRN ×5 (02:47→18:15)
[2021-04-14] MEDS: PIPERACILLIN/TAZOBACTAM 3.375 GM in SODIUM CHLORIDE 0.9% 50ML 50 ML IV SCH ×3 (05:31→17:50)
[2021-04-14 06:51] LABS: BASOPHILS # (AUTO) 0.1 (0.0-0.1); BASOPHILS % 0.3 % (0.0-1.0); EOSINOPHILS # (AUTO) 0.2 (0.0-0.4); EOSINOPHILS % 1.4 % (0.0-6.0); HEMATOCRIT 30.6 % (38.2-49.6); HEMOGLOBIN 9.3 g/dL (14.0-18.0); LYMPHOCYTES # (AUTO) 1.2 (1.0-3.2); LYMPHOCYTES % 7.6 % (18.0-39.1); MEAN CORPUSCULAR HEMOGLOBIN 28.2 pg (28-32); MEAN CORPUSCULAR HGB CONC 30.4 g/dL (31-35); MEAN CORPUSCULAR VOLUME 92.7 fL (81-99); MONOCYTES # (AUTO) 0.8 (0.2-0.8); MONOCYTES % 5.5 % (4.4-11.3); NEUTROPHILS # (AUTO) 12.3 (2.1-6.9); PLATELET COUNT 333 x10e3/uL (140-360)
[2021-04-14 07:12] LABS: ALBUMIN 3.5 g/dL (3.5-5.0); ALBUMIN/GLOBULIN RATIO 0.8 (0.8-2.0); ANION GAP 15.7 mmol/L (8-16); CALCIUM 9.8 mg/dL (8.4-10.2); CREATININE, SERUM 0.64 mg/dL (0.72-1.25); POTASSIUM 3.7 mmol/L (3.5-5.1)
[2021-04-14 07:54] LABS: ABG HCO3 48 mmol/L (22-26); ABG PCO2 78 mmHg (35-45); ABG PO2 74 mmHg (80-105); ABG TCO2 50
[2021-04-14] MEDS: ZINC SULFATE 220 MG CAP PO SCH (08:24)
[2021-04-14] MEDS: ENOXAPARIN INJ 80 MG/0.8 ML SYR SC SCH ×2 (08:24→21:28)
[2021-04-14] MEDS: FAMOTIDINE 20 MG/2 ML VIAL IV SCH ×2 (08:24→16:24)
[2021-04-14] MEDS: FENTANYL 2000MCG/NS 250 250 ML IV SCH ×2 (11:02→18:16)
[2021-04-14] MEDS: MIDAZOLAM HCL 5MG/ML 10ML VIAL 100 ML IV PRN (14:17)
[2021-04-15] VITALS (25 sets, daily range): BP systolic 80–121; BP diastolic 54–74
[2021-04-15] MEDS: PIPERACILLIN/TAZOBACTAM 3.375 GM in SODIUM CHLORIDE 0.9% 50ML 50 ML IV SCH ×4 (02:28→17:28)
[2021-04-15] MEDS: INSULIN LISPRO 100 UNIT/1 ML 3ML VIAL SQ SCH ×4 (02:29→17:56)
[2021-04-15 05:51] LABS: BASOPHILS # (AUTO) 0.1 (0.0-0.1); BASOPHILS % 0.7 % (0.0-1.0); EOSINOPHILS # (AUTO) 0.3 (0.0-0.4); EOSINOPHILS % 1.9 % (0.0-6.0); HEMATOCRIT 33.2 % (38.2-49.6); HEMOGLOBIN 9.6 g/dL (14.0-18.0); LYMPHOCYTES # (AUTO) 1.4 (1.0-3.2); LYMPHOCYTES % 9.2 % (18.0-39.1); MEAN CORPUSCULAR HGB CONC 28.9 g/dL (31-35); MEAN CORPUSCULAR VOLUME 96.8 fL (81-99); MONOCYTES # (AUTO) 1.1 (0.2-0.8); NEUTROPHILS # (AUTO) 11.8 (2.1-6.9); NEUTROPHILS % 75.5 % (38.7-80.0); PLATELET COUNT 407 x10e3/uL (140-360); RED BLOOD COUNT 3.43 x10e6/uL (4.3-5.7); RED CELL DISTRIBUTION WIDTH 14.3 % (11.7-14.4)
[2021-04-15 06:36] LABS: ALBUMIN/GLOBULIN RATIO 0.6 (0.8-2.0); ANION GAP 14.4 mmol/L (8-16); CREATININE, SERUM 0.7 mg/dL (0.72-1.25); POTASSIUM 4.4 mmol/L (3.5-5.1)
[2021-04-15] MEDS: MIDAZOLAM HCL 5MG/ML 10ML VIAL 100 ML IV PRN ×2 (06:50→12:20)
[2021-04-15] MEDS: PROPOFOL IV EMULSION 10MG/ML 100 ML IV PRN ×5 (06:50→21:19)
[2021-04-15] MEDS: FENTANYL 2000MCG/NS 250 250 ML IV SCH ×2 (08:00→14:57)
[2021-04-15] MEDS: FAMOTIDINE 20 MG/2 ML VIAL IV SCH ×2 (08:02→17:28)
[2021-04-15] MEDS: ENOXAPARIN INJ 80 MG/0.8 ML SYR SC SCH ×2 (08:03→20:19)
[2021-04-15] MEDS: ZINC SULFATE 220 MG CAP PO SCH (08:03)
[2021-04-15 09:00] LABS: ABG HCO3 48 mmol/L (22-26); ABG PCO2 120 mmHg (35-45); ABG PH 7.21 (7.35-7.45); ABG PO2 62 mmHg (80-105); ABG TCO2 > 50
[2021-04-15] MEDS ORDERED: ACETAZOLAMIDE SODIUM 500 MG/VIAL IV ONE (10:30)
[2021-04-15] MEDS: FUROSEMIDE INJ 10 MG/ML 4 ML VIAL IV SCH ×2 (10:46→20:19)
[2021-04-15 15:41] LABS: ABG PH 7.31 (7.35-7.45)
[2021-04-15 15:42] LABS: ABG HCO3 48 mmol/L (22-26); ABG PCO2 94 mmHg (35-45); ABG PO2 63 mmHg (80-105); ABG TCO2 > 50
[2021-04-16] VITALS (25 sets, daily range): BP systolic 85–115; BP diastolic 61–72
[2021-04-16] MEDS: PIPERACILLIN/TAZOBACTAM 3.375 GM in SODIUM CHLORIDE 0.9% 50ML 50 ML IV SCH ×4 (00:30→17:36)
[2021-04-16] MEDS: INSULIN LISPRO 100 UNIT/1 ML 3ML VIAL SQ SCH ×4 (00:31→17:40)
[2021-04-16 06:06] LABS: BASOPHILS # (AUTO) 0.1 (0.0-0.1); BASOPHILS % 0.8 % (0.0-1.0); EOSINOPHILS # (AUTO) 0.1 (0.0-0.4); EOSINOPHILS % 0.5 % (0.0-6.0); HEMATOCRIT 32.1 % (38.2-49.6); HEMOGLOBIN 9.1 g/dL (14.0-18.0); LYMPHOCYTES # (AUTO) 1.3 (1.0-3.2); LYMPHOCYTES % 7.9 % (18.0-39.1); MEAN CORPUSCULAR HEMOGLOBIN 27.8 pg (28-32); MEAN CORPUSCULAR HGB CONC 28.3 g/dL (31-35); MEAN CORPUSCULAR VOLUME 98.2 fL (81-99); MONOCYTES # (AUTO) 1.1 (0.2-0.8); MONOCYTES % 6.5 % (4.4-11.3); NEUTROPHILS # (AUTO) 12.7 (2.1-6.9); PLATELET COUNT 431 x10e3/uL (140-360); RED BLOOD COUNT 3.27 x10e6/uL (4.3-5.7); RED CELL DISTRIBUTION WIDTH 14.6 % (11.7-14.4)
[2021-04-16 06:36] LABS: ALBUMIN 2.7 g/dL (3.5-5.0); ALBUMIN/GLOBULIN RATIO 0.5 (0.8-2.0); CREATININE, SERUM 0.97 mg/dL (0.72-1.25)
[2021-04-16] MEDS: FAMOTIDINE 20 MG/2 ML VIAL IV SCH ×2 (07:53→16:48)
[2021-04-16] MEDS: ZINC SULFATE 220 MG CAP PO SCH (07:54)
[2021-04-16] MEDS: ENOXAPARIN INJ 80 MG/0.8 ML SYR SC SCH ×2 (07:54→21:57)
[2021-04-16] MEDS: MIDAZOLAM HCL 5MG/ML 10ML VIAL 100 ML IV PRN ×3 (08:00→18:25)
[2021-04-16 08:22] LABS: ABG HCO3 46 mmol/L (22-26); ABG PCO2 125 mmHg (35-45); ABG PH 7.17 (7.35-7.45); ABG PO2 75 mmHg (80-105); ABG TCO2 50
[2021-04-16] MEDS ORDERED: ALBUMIN 25% 25GM 100ML 0.25 GM/ML BTL IV SCH (09:00)
[2021-04-16] MEDS: PROPOFOL IV EMULSION 10MG/ML 100 ML IV PRN ×2 (09:21→13:50)
[2021-04-16] MEDS: ALBUMIN 25% 25GM 100ML 100 ML IV SCH ×2 (10:18→17:36)
[2021-04-16] MEDS: FUROSEMIDE INJ 10 MG/ML 4 ML VIAL IV SCH ×2 (10:18→21:57)
[2021-04-16] MEDS: FENTANYL 2000MCG/NS 250 250 ML IV SCH (12:09)
[2021-04-16] MEDS: ROCURONIUM 1250MG/NS 250 250 ML IV PRN (12:47)
[2021-04-16 13:19] LABS: ABG PH 7.22 (7.35-7.45)
[2021-04-16 13:20] LABS: ABG HCO3 45 mmol/L (22-26); ABG PCO2 110 mmHg (35-45); ABG PO2 96 mmHg (80-105); ABG TCO2 48
[2021-04-17] VITALS (24 sets, daily range): BP systolic 94–99; BP diastolic 59–64
[2021-04-17] MEDS: PIPERACILLIN/TAZOBACTAM 3.375 GM in SODIUM CHLORIDE 0.9% 50ML 50 ML IV SCH ×4 (01:29→18:47)
[2021-04-17] MEDS: INSULIN LISPRO 100 UNIT/1 ML 3ML VIAL SQ SCH ×4 (01:30→18:48)
[2021-04-17] MEDS: ALBUMIN 25% 25GM 100ML 100 ML IV SCH (02:43)
[2021-04-17 06:08] LABS: BASOPHILS # (AUTO) 0.1 (0.0-0.1); BASOPHILS % 0.6 % (0.0-1.0); EOSINOPHILS # (AUTO) 0.1 (0.0-0.4); EOSINOPHILS % 0.7 % (0.0-6.0); HEMATOCRIT 28.3 % (38.2-49.6); LYMPHOCYTES # (AUTO) 2.1 (1.0-3.2); LYMPHOCYTES % 13.4 % (18.0-39.1); MEAN CORPUSCULAR HGB CONC 28.3 g/dL (31-35); MONOCYTES % 6.6 % (4.4-11.3); NEUTROPHILS # (AUTO) 10.5 (2.1-6.9); NEUTROPHILS % 65.9 % (38.7-80.0); PLATELET COUNT 433 x10e3/uL (140-360); RED BLOOD COUNT 2.86 x10e6/uL (4.3-5.7); RED CELL DISTRIBUTION WIDTH 14.8 % (11.7-14.4)
[2021-04-17 07:06] LABS: ALBUMIN 3.2 g/dL (3.5-5.0); ALBUMIN/GLOBULIN RATIO 0.7 (0.8-2.0); ANION GAP 19.3 mmol/L (8-16); CALCIUM 9.9 mg/dL (8.4-10.2); CREATININE, SERUM 1.12 mg/dL (0.72-1.25); POTASSIUM 4.3 mmol/L (3.5-5.1)
[2021-04-17] MEDS: ENOXAPARIN INJ 80 MG/0.8 ML SYR SC SCH (08:09)
[2021-04-17] MEDS: ZINC SULFATE 220 MG CAP PO SCH (08:09)
[2021-04-17] MEDS: FAMOTIDINE 20 MG/2 ML VIAL IV SCH ×2 (08:09→18:00)
[2021-04-17 09:58] LABS: ABG PH 7.28 (7.35-7.45)
[2021-04-17] MEDS: FENTANYL 2000MCG/NS 250 250 ML IV SCH (09:58)
[2021-04-17 09:59] LABS: ABG HCO3 39 mmol/L (22-26); ABG PCO2 82 mmHg (35-45); ABG PO2 103 mmHg (80-105); ABG TCO2 41
[2021-04-17] MEDS: MIDAZOLAM HCL 5MG/ML 10ML VIAL 100 ML IV PRN ×2 (09:59→11:01)
[2021-04-17] MEDS: PROPOFOL IV EMULSION 10MG/ML 100 ML IV PRN ×2 (10:00→17:20)
[2021-04-18] VITALS (24 sets, daily range): BP systolic 84–104; BP diastolic 51–67
[2021-04-18] MEDS: ENOXAPARIN INJ 80 MG/0.8 ML SYR SC SCH ×3 (00:23→22:09)
[2021-04-18] MEDS: PIPERACILLIN/TAZOBACTAM 3.375 GM in SODIUM CHLORIDE 0.9% 50ML 50 ML IV SCH ×4 (00:23→17:35)
[2021-04-18] MEDS: INSULIN LISPRO 100 UNIT/1 ML 3ML VIAL SQ SCH ×4 (00:27→18:46)
[2021-04-18 05:41] LABS: BASOPHILS # (AUTO) 0.1 (0.0-0.1); BASOPHILS % 0.5 % (0.0-1.0); EOSINOPHILS # (AUTO) 0.1 (0.0-0.4); EOSINOPHILS % 0.7 % (0.0-6.0); HEMATOCRIT 28.5 % (38.2-49.6); HEMOGLOBIN 8.3 g/dL (14.0-18.0); LYMPHOCYTES # (AUTO) 2.3 (1.0-3.2); LYMPHOCYTES % 10.9 % (18.0-39.1); MEAN CORPUSCULAR HEMOGLOBIN 28.5 pg (28-32); MEAN CORPUSCULAR HGB CONC 29.1 g/dL (31-35); MEAN CORPUSCULAR VOLUME 97.9 fL (81-99); MONOCYTES # (AUTO) 1.4 (0.2-0.8); MONOCYTES % 6.4 % (4.4-11.3); NEUTROPHILS # (AUTO) 13.7 (2.1-6.9); NEUTROPHILS % 63.7 % (38.7-80.0); PLATELET COUNT 474 x10e3/uL (140-360); RED BLOOD COUNT 2.91 x10e6/uL (4.3-5.7); RED CELL DISTRIBUTION WIDTH 15.4 % (11.7-14.4)
[2021-04-18 06:07] LABS: ALBUMIN 2.9 g/dL (3.5-5.0); ALBUMIN/GLOBULIN RATIO 0.6 (0.8-2.0); ANION GAP 16.3 mmol/L (8-16); CALCIUM 9.8 mg/dL (8.4-10.2); CREATININE, SERUM 1.2 mg/dL (0.72-1.25); POTASSIUM 4.3 mmol/L (3.5-5.1)
[2021-04-18] MEDS: FAMOTIDINE 20 MG/2 ML VIAL IV SCH ×2 (08:15→17:35)
[2021-04-18] MEDS: ZINC SULFATE 220 MG CAP PO SCH (08:15)
[2021-04-18] MEDS: FENTANYL 2000MCG/NS 250 250 ML IV SCH (08:16)
[2021-04-18 08:17] LABS: BAND NEUTROPHILS % (MANUAL) 8 %; LYMPHOCYTES % (MANUAL) 11 % (19-48); METAMYELOCYTES % (MANUAL) 3 % (0-0); MONOCYTES % (MANUAL) 6 % (3.4-9.0); MYELOCYTES % (MANUAL) 2 % (0-0); NEUTROPHILS % (MANUAL) 70 % (40-74); NUCLEATED RED BLOOD CELLS 3; PLATELET ESTIMATE MODERATELY INCREASED; PLATELET MORPHOLOGY COMMENT FEW GIANT; POLYCHROMASIA FEW; RBC MORPHOLOGY COMMENT ABNORMAL
[2021-04-18 08:18] LABS: ANISOCYTOSIS SLIGHT
[2021-04-18] MEDS: PROPOFOL IV EMULSION 10MG/ML 100 ML IV PRN ×2 (08:18→18:48)
[2021-04-18 08:20] LABS: HYPOCHROMASIA SLIGHT
[2021-04-18] MEDS: MIDAZOLAM HCL 5MG/ML 10ML VIAL 100 ML IV PRN (08:20)
[2021-04-18 09:25] LABS: ABG HCO3 41 mmol/L (22-26); ABG PCO2 95 mmHg (35-45); ABG PH 7.24 (7.35-7.45); ABG PO2 86 mmHg (80-105); ABG TCO2 44
[2021-04-18] MEDS ORDERED: BISACODYL 10 MG SUPP PR ONE (13:30)
[2021-04-18] MEDS: FUROSEMIDE INJ 10 MG/ML 4 ML VIAL IV SCH ×2 (14:00→22:09)
[2021-04-18 14:31] LABS: INR 1.31; PROTHROMBIN TIME 16.5 seconds (11.9-14.5)
[2021-04-18 14:32] LABS: PARTIAL THROMBOPLASTIN TIME 36.7 seconds (23.8-35.5)
[2021-04-18] MEDS: INSULIN GLARGINE 100 UNITS/ML VIAL SQ SCH (22:10)
[2021-04-19] VITALS (20 sets, daily range): BP systolic 81–110; BP diastolic 46–76
[2021-04-19] MEDS: PIPERACILLIN/TAZOBACTAM 3.375 GM in SODIUM CHLORIDE 0.9% 50ML 50 ML IV SCH ×4 (00:52→19:10)
[2021-04-19] MEDS: INSULIN LISPRO 100 UNIT/1 ML 3ML VIAL SQ SCH ×4 (05:54→19:13)
[2021-04-19 07:13] LABS: BASOPHILS # (AUTO) 0.1 (0.0-0.1); BASOPHILS % 0.4 % (0.0-1.0); EOSINOPHILS # (AUTO) 0.2 (0.0-0.4); HEMATOCRIT 29.5 % (38.2-49.6); HEMOGLOBIN 8.4 g/dL (14.0-18.0); LYMPHOCYTES # (AUTO) 2.3 (1.0-3.2); LYMPHOCYTES % 11.3 % (18.0-39.1); MEAN CORPUSCULAR HGB CONC 28.5 g/dL (31-35); MEAN CORPUSCULAR VOLUME 98.3 fL (81-99); MONOCYTES # (AUTO) 1.1 (0.2-0.8); MONOCYTES % 5.3 % (4.4-11.3); NEUTROPHILS # (AUTO) 13.1 (2.1-6.9); NEUTROPHILS % 64.9 % (38.7-80.0); PLATELET COUNT 446 x10e3/uL (140-360); RED CELL DISTRIBUTION WIDTH 15.6 % (11.7-14.4)
[2021-04-19 07:50] LABS: ALBUMIN 2.7 g/dL (3.5-5.0); ALBUMIN/GLOBULIN RATIO 0.6 (0.8-2.0); ANION GAP 16.5 mmol/L (8-16); CALCIUM 9.9 mg/dL (8.4-10.2); CREATININE, SERUM 1.13 mg/dL (0.72-1.25); POTASSIUM 4.5 mmol/L (3.5-5.1)
[2021-04-19 08:41] LABS: ABG HCO3 40 mmol/L (22-26); ABG PCO2 94 mmHg (35-45); ABG PH 7.23 (7.35-7.45); ABG PO2 70 mmHg (80-105); ABG TCO2 42
[2021-04-19] MEDS: FENTANYL 2000MCG/NS 250 250 ML IV PRN (08:46)
[2021-04-19] MEDS: MIDAZOLAM HCL 5MG/ML 10ML VIAL 100 ML IV PRN (08:47)
[2021-04-19] MEDS: PROPOFOL IV EMULSION 10MG/ML 100 ML IV PRN (08:49)
[2021-04-19] MEDS: ZINC SULFATE 220 MG CAP PO SCH (09:28)
[2021-04-19] MEDS: ENOXAPARIN INJ 80 MG/0.8 ML SYR SC SCH ×2 (09:28→22:11)
[2021-04-19] MEDS: FAMOTIDINE 20 MG/2 ML VIAL IV SCH ×2 (09:28→19:10)
[2021-04-19] MEDS ORDERED: PROPOFOL IV EMULSION 50 ML IV PRN (10:00)
[2021-04-19] MEDS: ALBUMIN 25% 12.5GM 0.25 GM/ML BTL IV SCH ×2 (11:00→19:10)
[2021-04-19] MEDS: FUROSEMIDE INJ 10 MG/ML 4 ML VIAL IV SCH ×2 (11:00→22:11)
[2021-04-19 11:50] LABS: BAND NEUTROPHILS % (MANUAL) 7 %; EOSINOPHILS % (MANUAL) 2 % (0-7); LYMPHOCYTES % (MANUAL) 4 % (19-48); METAMYELOCYTES % (MANUAL) 4 % (0-0); MONOCYTES % (MANUAL) 5 % (3.4-9.0); MYELOCYTES % (MANUAL) 12 % (0-0); NEUTROPHILS % (MANUAL) 58 % (40-74); NUCLEATED RED BLOOD CELLS 1; PROMYELOCYTES % (MANUAL) 5 % (0-0)
[2021-04-19 11:51] LABS: PLATELET ESTIMATE ADEQUATE; PLATELET MORPHOLOGY COMMENT NORMAL
[2021-04-19 11:52] LABS: ANISOCYTOSIS SLIG; POIKILOCYTOSIS SLIGHT; POLYCHROMASIA FEW; RBC MORPHOLOGY COMMENT ABNORMAL
[2021-04-19] MEDS: NOREPINEPHRINE 8 MG/D5W 250 ML 250 ML IV SCH (13:50)
[2021-04-19] MEDS ORDERED: SODIUM CHLORIDE 0.9% 50ML 50 ML ONE (17:14)
[2021-04-19] MEDS ORDERED: IOPAMIDOL 370 MG/ML 200 ML INFUS..BTL INJ ONE (17:14)
[2021-04-19] MEDS: INSULIN GLARGINE 100 UNITS/ML VIAL SQ SCH (22:11)
[2021-04-20] VITALS (26 sets, daily range): BP systolic 83–110; BP diastolic 47–76
[2021-04-20] MEDS: PIPERACILLIN/TAZOBACTAM 3.375 GM in SODIUM CHLORIDE 0.9% 50ML 50 ML IV SCH ×2 (00:49→06:19)
[2021-04-20] MEDS: INSULIN LISPRO 100 UNIT/1 ML 3ML VIAL SQ SCH ×4 (00:50→18:43)
[2021-04-20 01:56] LABS: % IRON SATURATION 37 % (15-50); IRON 72 ug/dL (65-175); TOTAL IRON BINDING CAPACITY 193 ug/dL (261-478); TRANSFERRIN 138 mg/dL (174-364)
[2021-04-20] MEDS: ALBUMIN 25% 12.5GM 0.25 GM/ML BTL IV SCH (02:28)
[2021-04-20 06:30] LABS: BASOPHILS # (AUTO) 0.2 (0.0-0.1); BASOPHILS % 0.6 % (0.0-1.0); EOSINOPHILS # (AUTO) 0.2 (0.0-0.4); EOSINOPHILS % 0.7 % (0.0-6.0); HEMATOCRIT 27.3 % (38.2-49.6); HEMOGLOBIN 8.1 g/dL (14.0-18.0); LYMPHOCYTES # (AUTO) 2.7 (1.0-3.2); LYMPHOCYTES % 10.4 % (18.0-39.1); MEAN CORPUSCULAR HEMOGLOBIN 28.5 pg (28-32); MEAN CORPUSCULAR HGB CONC 29.7 g/dL (31-35); MEAN CORPUSCULAR VOLUME 96.1 fL (81-99); MONOCYTES # (AUTO) 2.1 (0.2-0.8); MONOCYTES % 8.1 % (4.4-11.3); NEUTROPHILS # (AUTO) 15.9 (2.1-6.9); NEUTROPHILS % 61.6 % (38.7-80.0); PLATELET COUNT 385 x10e3/uL (140-360); RED BLOOD COUNT 2.84 x10e6/uL (4.3-5.7); RED CELL DISTRIBUTION WIDTH 16.3 % (11.7-14.4)
[2021-04-20 06:50] LABS: ALBUMIN 3.3 g/dL (3.5-5.0); ALBUMIN/GLOBULIN RATIO 0.8 (0.8-2.0); ANION GAP 18.7 mmol/L (8-16); CALCIUM 9.6 mg/dL (8.4-10.2); CREATININE, SERUM 1.89 mg/dL (0.72-1.25); POTASSIUM 4.7 mmol/L (3.5-5.1)
[2021-04-20 08:23] LABS: ABG PCO2 84 mmHg (35-45); ABG PH 7.24 (7.35-7.45); ABG PO2 61 mmHg (80-105)
[2021-04-20 08:24] LABS: ABG HCO3 36 mmol/L (22-26); ABG TCO2 39
[2021-04-20] MEDS: ZINC SULFATE 220 MG CAP PO SCH (08:28)
[2021-04-20] MEDS: FAMOTIDINE 20 MG/2 ML VIAL IV SCH ×2 (08:28→16:39)
[2021-04-20] MEDS: ENOXAPARIN INJ 80 MG/0.8 ML SYR SC SCH (08:28)
[2021-04-20 10:59] LABS: BURR CELLS MARKED; EOSINOPHILS % (MANUAL) 2 % (0-7); HYPOCHROMASIA SLIGHT; LYMPHOCYTES % (MANUAL) 15 % (19-48); METAMYELOCYTES % (MANUAL) 4 % (0-0); MONOCYTES % (MANUAL) 6 % (3.4-9.0); MYELOCYTES % (MANUAL) 8 % (0-0); NEUTROPHILS % (MANUAL) 65 % (40-74)
[2021-04-20 11:00] LABS: PLATELET ESTIMATE ADEQUATE; PLATELET MORPHOLOGY COMMENT FEW LARGE; POLYCHROMASIA MODE; RBC MORPHOLOGY COMMENT ABNORMAL
[2021-04-20] MEDS: MIDAZOLAM HCL 5MG/ML 10ML VIAL 100 ML IV PRN (11:33)
[2021-04-20] MEDS: FENTANYL 2000MCG/NS 250 250 ML IV PRN (11:35)
[2021-04-20] MEDS: LINEZOLID 600 MG/D5W 300ML 300 ML IV SCH (12:47)
[2021-04-20] MEDS: METRONIDAZOLE 500MG/NS 100ML 100 ML IV SCH ×2 (12:48→20:30)
[2021-04-20] MEDS: FUROSEMIDE INJ 100 MG in SODIUM CHLORIDE 0.9% 100 ML 90 ML IV SCH (13:40)
[2021-04-20] MEDS: CEFEPIME 1 GM in SODIUM CHLORIDE 0.9% 50ML 50 ML IV SCH ×2 (14:11→18:00)
[2021-04-20] MEDS: NOREPINEPHRINE 8 MG/D5W 250 ML 250 ML IV SCH (20:29)
[2021-04-20] MEDS ORDERED: ENOXAPARIN INJ 80 MG/0.8 ML SYR SC SCH (21:00)
[2021-04-20] MEDS: INSULIN GLARGINE 100 UNITS/ML VIAL SQ SCH (22:40)
[2021-04-21] VITALS (28 sets, daily range): BP systolic 83–135; BP diastolic 49–76
[2021-04-21] MEDS: LINEZOLID 600 MG/D5W 300ML 300 ML IV SCH ×3 (00:19→23:14)
[2021-04-21] MEDS: INSULIN LISPRO 100 UNIT/1 ML 3ML VIAL SQ SCH ×4 (00:20→18:10)
[2021-04-21] MEDS: CEFEPIME 1 GM in SODIUM CHLORIDE 0.9% 50ML 50 ML IV SCH ×3 (02:14→16:48)
[2021-04-21] MEDS: BISACODYL 10 MG SUPP PR PRN (04:17)
[2021-04-21] MEDS: LACTULOSE SYRUP 20 GM/30 ML UDC PO PRN ×2 (04:17→11:34)
[2021-04-21] MEDS: METRONIDAZOLE 500MG/NS 100ML 100 ML IV SCH ×3 (04:17→21:44)
[2021-04-21] MEDS: FUROSEMIDE INJ 100 MG in SODIUM CHLORIDE 0.9% 100 ML 90 ML IV SCH ×3 (06:04→22:01)
[2021-04-21 06:21] LABS: BASOPHILS # (AUTO) 0.2 (0.0-0.1); BASOPHILS % 0.7 % (0.0-1.0); EOSINOPHILS # (AUTO) 0.3 (0.0-0.4); EOSINOPHILS % 0.9 % (0.0-6.0); HEMATOCRIT 28.7 % (38.2-49.6); HEMOGLOBIN 8.6 g/dL (14.0-18.0); LYMPHOCYTES # (AUTO) 2.4 (1.0-3.2); LYMPHOCYTES % 7.8 % (18.0-39.1); MEAN CORPUSCULAR HEMOGLOBIN 28.9 pg (28-32); MEAN CORPUSCULAR VOLUME 96.3 fL (81-99); MONOCYTES # (AUTO) 2.5 (0.2-0.8); MONOCYTES % 8.2 % (4.4-11.3); NEUTROPHILS # (AUTO) 18.4 (2.1-6.9); NEUTROPHILS % 59.6 % (38.7-80.0); PLATELET COUNT 394 x10e3/uL (140-360); RED BLOOD COUNT 2.98 x10e6/uL (4.3-5.7)
[2021-04-21 06:53] LABS: ALBUMIN/GLOBULIN RATIO 0.7 (0.8-2.0); ANION GAP 19.2 mmol/L (8-16); CALCIUM 9.3 mg/dL (8.4-10.2); CREATININE, SERUM 2.94 mg/dL (0.72-1.25); POTASSIUM 5.2 mmol/L (3.5-5.1)
[2021-04-21 08:49] LABS: ABG PH 7.04 (7.35-7.45)
[2021-04-21 08:50] LABS: ABG HCO3 34 mmol/L (22-26); ABG PCO2 124 mmHg (35-45); ABG PO2 70 mmHg (80-105); ABG TCO2 37
[2021-04-21] MEDS ORDERED: SODIUM BICARBONATE 8.4% SYRING 50 ML ONE ×2 (08:56→09:03)
[2021-04-21] MEDS: FENTANYL 2000MCG/NS 250 250 ML IV PRN ×2 (09:00→16:31)
[2021-04-21] MEDS: MIDAZOLAM HCL 5MG/ML 10ML VIAL 100 ML IV PRN ×2 (09:00→16:31)
[2021-04-21] MEDS: PROPOFOL IV EMULSION 10MG/ML 100 ML IV PRN (09:00)
[2021-04-21] MEDS ORDERED: HEPARIN 25,000 UNIT 1,500 UNIT in DEXTROSE 5% 250ML 250 ML IV SCH ×5 (09:30→15:00)
[2021-04-21] MEDS: NOREPINEPHRINE 8 MG/D5W 250 ML 250 ML IV SCH (11:30)
[2021-04-21] MEDS: FAMOTIDINE 20 MG/2 ML VIAL IV SCH ×2 (11:30→18:07)
[2021-04-21] MEDS: ZINC SULFATE 220 MG CAP PO SCH (11:30)
[2021-04-21 12:10] LABS: BAND NEUTROPHILS % (MANUAL) 5 %; LYMPHOCYTES % (MANUAL) 14 % (19-48); METAMYELOCYTES % (MANUAL) 2 % (0-0); MONOCYTES % (MANUAL) 15 % (3.4-9.0); MYELOCYTES % (MANUAL) 6 % (0-0); NEUTROPHILS % (MANUAL) 58 % (40-74); NUCLEATED RED BLOOD CELLS 15; PLATELET ESTIMATE ADEQUATE; PLATELET MORPHOLOGY COMMENT FEW LARGE; RBC MORPHOLOGY COMMENT NORMAL
[2021-04-21 12:11] LABS: HYPOCHROMASIA SLIGHT; POLYCHROMASIA FEW
[2021-04-21 12:31] LABS: ABG PH 7.15 (7.35-7.45)
[2021-04-21 12:32] LABS: ABG HCO3 33 mmol/L (22-26); ABG PCO2 95 mmHg (35-45); ABG PO2 63 mmHg (80-105); ABG TCO2 36
[2021-04-21 15:15] LABS: INR 1.66; PROTHROMBIN TIME 19.9 seconds (11.9-14.5)
[2021-04-21] MEDS ORDERED: PHE/SHARK LIVER OIL/COCOA BUT 24 EA SUPP RC PRN (15:15)
[2021-04-21] MEDS ORDERED: PHENYLEPH/SHARK OIL/MO/PETROL 30 GM OINT RC PRN (15:15)
[2021-04-21] MEDS ORDERED: MANNITOL 25% 12.5GM/50 ML VIAL IV PRN (16:00)
[2021-04-21] MEDS ORDERED: HEPARIN SOD (PORCINE) 1000 UNIT/ML SDV IV PRN (16:00)
[2021-04-21] MEDS ORDERED: SODIUM CHLORIDE 0.9% 1000ML 2,000 ML IV PRN (16:00)
[2021-04-21] MEDS ORDERED: HEPARIN SOD (PORCINE) 1000 UNIT/ML SDV ONE (18:27)
[2021-04-21] MEDS ORDERED: SODIUM BICARBONATE 8.4% INJ 50 ML SYR IV NR (19:25)
[2021-04-21] MEDS: INSULIN GLARGINE 100 UNITS/ML VIAL SQ SCH (21:46)
[2021-04-21] MEDS: HEPARIN 25,000 UNIT 1,500 UNIT in DEXTROSE 5% 250ML 250 ML IV SCH ×2 (21:48→22:59)
[2021-04-22] VITALS (28 sets, daily range): BP systolic 83–140; BP diastolic 52–78
[2021-04-22] MEDS: INSULIN LISPRO 100 UNIT/1 ML 3ML VIAL SQ SCH ×4 (00:56→19:10)
[2021-04-22] MEDS: CEFEPIME 1 GM in SODIUM CHLORIDE 0.9% 50ML 50 ML IV SCH ×3 (02:16→17:17)
[2021-04-22 04:31] LABS: BASOPHILS # (AUTO) 0.1 (0.0-0.1); BASOPHILS % 0.3 % (0.0-1.0); EOSINOPHILS # (AUTO) 0.5 (0.0-0.4); EOSINOPHILS % 1.6 % (0.0-6.0); HEMATOCRIT 27.4 % (38.2-49.6); HEMOGLOBIN 8.3 g/dL (14.0-18.0); LYMPHOCYTES # (AUTO) 3.4 (1.0-3.2); MEAN CORPUSCULAR HEMOGLOBIN 28.6 pg (28-32); MEAN CORPUSCULAR HGB CONC 30.3 g/dL (31-35); MEAN CORPUSCULAR VOLUME 94.5 fL (81-99); MONOCYTES # (AUTO) 2.7 (0.2-0.8); MONOCYTES % 8.1 % (4.4-11.3); NEUTROPHILS # (AUTO) 20.5 (2.1-6.9); NEUTROPHILS % 60.8 % (38.7-80.0); PLATELET COUNT 399 x10e3/uL (140-360); RED CELL DISTRIBUTION WIDTH 17.2 % (11.7-14.4)
[2021-04-22 04:47] LABS: ALBUMIN 2.7 g/dL (3.5-5.0); ALBUMIN/GLOBULIN RATIO 0.6 (0.8-2.0); ANION GAP 20.7 mmol/L (8-16); CALCIUM 8.9 mg/dL (8.4-10.2); CREATININE, SERUM 2.99 mg/dL (0.72-1.25); POTASSIUM 4.7 mmol/L (3.5-5.1)
[2021-04-22] MEDS: METRONIDAZOLE 500MG/NS 100ML 100 ML IV SCH ×3 (05:03→20:49)
[2021-04-22] MEDS: HEPARIN 25,000 UNIT 1,500 UNIT in DEXTROSE 5% 250ML 250 ML IV SCH (05:05)
[2021-04-22 08:59] LABS: ABG HCO3 30 mmol/L (22-26); ABG PCO2 84 mmHg (35-45); ABG PH 7.17 (7.35-7.45); ABG PO2 75 mmHg (80-105); ABG TCO2 33
[2021-04-22 10:26] LABS: EOSINOPHILS % (MANUAL) 2 % (0-7); LYMPHOCYTES % (MANUAL) 10 % (19-48); MONOCYTES % (MANUAL) 12 % (3.4-9.0); NEUTROPHILS % (MANUAL) 76 % (40-74); NUCLEATED RED BLOOD CELLS 23; PLATELET ESTIMATE ADEQUATE; PLATELET MORPHOLOGY COMMENT NORMAL; RBC MORPHOLOGY COMMENT NORMAL
[2021-04-22 10:28] LABS: HYPOCHROMASIA MODERATE; POLYCHROMASIA FEW
[2021-04-22] MEDS: FAMOTIDINE 20 MG/2 ML VIAL IV SCH ×2 (11:28→16:44)
[2021-04-22] MEDS: BALSAM PERU/CASTOR OIL 60 GM OINT...G. TP SCH (11:29)
[2021-04-22] MEDS: ZINC SULFATE 220 MG CAP PO SCH (11:29)
[2021-04-22] MEDS: LINEZOLID 600 MG/D5W 300ML 300 ML IV SCH (11:43)
[2021-04-22] MEDS: NOREPINEPHRINE 8 MG/D5W 250 ML 250 ML IV SCH (20:48)
[2021-04-22] MEDS: INSULIN GLARGINE 100 UNITS/ML VIAL SQ SCH (21:22)
[2021-04-23] VITALS (23 sets, daily range): BP systolic 83–129; BP diastolic 48–76
[2021-04-23] MEDS: CEFEPIME 1 GM in SODIUM CHLORIDE 0.9% 50ML 50 ML IV SCH ×3 (02:24→18:47)
[2021-04-23] MEDS: LINEZOLID 600 MG/D5W 300ML 300 ML IV SCH ×3 (02:24→23:47)
[2021-04-23] MEDS: METRONIDAZOLE 500MG/NS 100ML 100 ML IV SCH ×3 (04:24→21:08)
[2021-04-23] MEDS: INSULIN LISPRO 100 UNIT/1 ML 3ML VIAL SQ SCH ×4 (06:37→18:48)
[2021-04-23 06:45] LABS: BASOPHILS # (AUTO) 0.1 (0.0-0.1); BASOPHILS % 0.2 % (0.0-1.0); EOSINOPHILS # (AUTO) 0.6 (0.0-0.4); EOSINOPHILS % 1.9 % (0.0-6.0); HEMATOCRIT 26.9 % (38.2-49.6); HEMOGLOBIN 8.2 g/dL (14.0-18.0); LYMPHOCYTES # (AUTO) 4.3 (1.0-3.2); LYMPHOCYTES % 12.5 % (18.0-39.1); MEAN CORPUSCULAR HEMOGLOBIN 28.5 pg (28-32); MEAN CORPUSCULAR HGB CONC 30.5 g/dL (31-35); MEAN CORPUSCULAR VOLUME 93.4 fL (81-99); MONOCYTES # (AUTO) 2.9 (0.2-0.8); MONOCYTES % 8.5 % (4.4-11.3); NEUTROPHILS # (AUTO) 21.1 (2.1-6.9); NEUTROPHILS % 61.5 % (38.7-80.0); PLATELET COUNT 335 x10e3/uL (140-360); RED BLOOD COUNT 2.88 x10e6/uL (4.3-5.7); RED CELL DISTRIBUTION WIDTH 18.3 % (11.7-14.4)
[2021-04-23 07:12] LABS: ALBUMIN 2.4 g/dL (3.5-5.0); ALBUMIN/GLOBULIN RATIO 0.5 (0.8-2.0); ANION GAP 19.1 mmol/L (8-16); CALCIUM 8.9 mg/dL (8.4-10.2); CREATININE, SERUM 2.8 mg/dL (0.72-1.25); POTASSIUM 4.1 mmol/L (3.5-5.1)
[2021-04-23 09:02] LABS: ABG HCO3 31 mmol/L (22-26); ABG PCO2 80 mmHg (35-45); ABG PO2 65 mmHg (80-105); ABG TCO2 34
[2021-04-23 09:58] LABS: BAND NEUTROPHILS % (MANUAL) 4 %; EOSINOPHILS % (MANUAL) 4 % (0-7); LYMPHOCYTES % (MANUAL) 20 % (19-48); METAMYELOCYTES % (MANUAL) 4 % (0-0); MONOCYTES % (MANUAL) 3 % (3.4-9.0); MYELOCYTES % (MANUAL) 4 % (0-0); NEUTROPHILS % (MANUAL) 60 % (40-74); NUCLEATED RED BLOOD CELLS 42; PLATELET ESTIMATE ADEQUATE; PLATELET MORPHOLOGY COMMENT FEW GIANT; PROMYELOCYTES % (MANUAL) 1 % (0-0)
[2021-04-23 09:59] LABS: POLYCHROMASIA FEW; RBC MORPHOLOGY COMMENT NORMAL
[2021-04-23] MEDS: FAMOTIDINE 20 MG/2 ML VIAL IV SCH ×2 (11:10→16:50)
[2021-04-23] MEDS: BALSAM PERU/CASTOR OIL 60 GM OINT...G. TP SCH (11:10)
[2021-04-23] MEDS: ZINC SULFATE 220 MG CAP PO SCH (11:10)
[2021-04-23 13:22] LABS: INR 1.33; PROTHROMBIN TIME 16.7 seconds (11.9-14.5)
[2021-04-23] MEDS: NOREPINEPHRINE 8 MG/D5W 250 ML 250 ML IV SCH (16:50)
[2021-04-23] MEDS ORDERED: ALBUMIN 25% 25GM 100ML 0.25 GM/ML BTL IV ONE (20:30)
[2021-04-23 20:35] LABS: ABG PH 7.16 (7.35-7.45)
[2021-04-23 20:36] LABS: ABG HCO3 28 mmol/L (22-26); ABG PCO2 79 mmHg (35-45); ABG PO2 56 mmHg (80-105); ABG TCO2 30
[2021-04-23] MEDS: INSULIN GLARGINE 100 UNITS/ML VIAL SQ SCH (23:46)
[2021-04-23] MEDS: HEPARIN 25,000 UNIT 1,500 UNIT in DEXTROSE 5% 250ML 250 ML IV SCH (23:47)
[2021-04-24] VITALS (22 sets, daily range): BP systolic 97–129; BP diastolic 32–66
[2021-04-24] MEDS: CEFEPIME 1 GM in SODIUM CHLORIDE 0.9% 50ML 50 ML IV SCH ×3 (02:43→17:07)
[2021-04-24] MEDS ORDERED: SODIUM BICARBONATE 8.4% INJ 50 ML SYR IV STA (03:42)
[2021-04-24] MEDS: METRONIDAZOLE 500MG/NS 100ML 100 ML IV SCH ×3 (04:42→20:30)
[2021-04-24] MEDS: INSULIN LISPRO 100 UNIT/1 ML 3ML VIAL SQ SCH ×4 (05:57→18:10)
[2021-04-24 06:27] LABS: BASOPHILS # (AUTO) 0.1 (0.0-0.1); BASOPHILS % 0.3 % (0.0-1.0); EOSINOPHILS # (AUTO) 0.4 (0.0-0.4); EOSINOPHILS % 1.2 % (0.0-6.0); HEMATOCRIT 26.1 % (38.2-49.6); HEMOGLOBIN 8.3 g/dL (14.0-18.0); LYMPHOCYTES # (AUTO) 3.5 (1.0-3.2); LYMPHOCYTES % 10.8 % (18.0-39.1); MEAN CORPUSCULAR HEMOGLOBIN 28.9 pg (28-32); MEAN CORPUSCULAR HGB CONC 31.8 g/dL (31-35); MEAN CORPUSCULAR VOLUME 90.9 fL (81-99); MONOCYTES # (AUTO) 3.3 (0.2-0.8); MONOCYTES % 10.4 % (4.4-11.3); NEUTROPHILS # (AUTO) 20.8 (2.1-6.9); NEUTROPHILS % 64.6 % (38.7-80.0); PLATELET COUNT 305 x10e3/uL (140-360); RED BLOOD COUNT 2.87 x10e6/uL (4.3-5.7); RED CELL DISTRIBUTION WIDTH 19.2 % (11.7-14.4)
[2021-04-24 06:41] LABS: ALBUMIN 2.4 g/dL (3.5-5.0); ALBUMIN/GLOBULIN RATIO 0.5 (0.8-2.0); ANION GAP 22.7 mmol/L (8-16); CALCIUM 8.6 mg/dL (8.4-10.2); CREATININE, SERUM 3.48 mg/dL (0.72-1.25); POTASSIUM 4.7 mmol/L (3.5-5.1)
[2021-04-24 08:41] LABS: ABG HCO3 27 mmol/L (22-26); ABG PCO2 75 mmHg (35-45); ABG PH 7.16 (7.35-7.45); ABG PO2 75 mmHg (80-105); ABG TCO2 29
[2021-04-24] MEDS: FENTANYL 2000MCG/NS 250 250 ML IV PRN (10:30)
[2021-04-24 12:17] LABS: BAND NEUTROPHILS % (MANUAL) 2 %; EOSINOPHILS % (MANUAL) 1 % (0-7); LYMPHOCYTES % (MANUAL) 16 % (19-48); MONOCYTES % (MANUAL) 5 % (3.4-9.0); MYELOCYTES % (MANUAL) 2 % (0-0); NEUTROPHILS % (MANUAL) 72 % (40-74); NUCLEATED RED BLOOD CELLS 21; PLATELET ESTIMATE ADEQUATE
[2021-04-24 12:18] LABS: PLATELET MORPHOLOGY COMMENT NORMAL; RBC MORPHOLOGY COMMENT NORMAL
[2021-04-24] MEDS: FAMOTIDINE 20 MG/2 ML VIAL IV SCH ×2 (13:34→17:06)
[2021-04-24] MEDS: BALSAM PERU/CASTOR OIL 60 GM OINT...G. TP SCH (13:34)
[2021-04-24] MEDS: ZINC SULFATE 220 MG CAP PO SCH (13:34)
[2021-04-24] MEDS: NOREPINEPHRINE 8 MG/D5W 250 ML 250 ML IV SCH ×2 (15:05→21:06)
[2021-04-24] MEDS: PROPOFOL IV EMULSION 10MG/ML 100 ML IV PRN ×2 (15:06→20:15)
[2021-04-24] MEDS: LINEZOLID 600 MG/D5W 300ML 300 ML IV SCH ×2 (17:06→23:34)
[2021-04-24] MEDS: FLUCONAZOLE 200 MG/100 ML 100 ML IV SCH (17:06)
[2021-04-24] MEDS: MIDAZOLAM HCL 5MG/ML 10ML VIAL 100 ML IV PRN (20:17)
[2021-04-24] MEDS: ROCURONIUM 1250MG/NS 250 250 ML IV PRN (21:04)
[2021-04-24] MEDS: HEPARIN 25,000 UNIT 1,500 UNIT in DEXTROSE 5% 250ML 250 ML IV SCH (21:45)
[2021-04-24] MEDS: INSULIN GLARGINE 100 UNITS/ML VIAL SQ SCH (22:28)
[2021-04-25] VITALS (26 sets, daily range): BP systolic 88–109; BP diastolic 50–62
[2021-04-25] MEDS: MIDAZOLAM HCL 5MG/ML 10ML VIAL 100 ML IV PRN ×5 (00:52→22:57)
[2021-04-25] MEDS: FENTANYL 2000MCG/NS 250 250 ML IV PRN ×4 (01:26→22:57)
[2021-04-25] MEDS: CEFEPIME 1 GM in SODIUM CHLORIDE 0.9% 50ML 50 ML IV SCH ×3 (01:34→16:32)
[2021-04-25] MEDS: INSULIN LISPRO 100 UNIT/1 ML 3ML VIAL SQ SCH ×4 (01:34→16:48)
[2021-04-25] MEDS: PROPOFOL IV EMULSION 10MG/ML 100 ML IV PRN ×5 (02:00→20:42)
[2021-04-25] MEDS: METRONIDAZOLE 500MG/NS 100ML 100 ML IV SCH ×3 (04:13→20:43)
[2021-04-25 06:30] LABS: BASOPHILS # (AUTO) 0.1 (0.0-0.1); BASOPHILS % 0.3 % (0.0-1.0); EOSINOPHILS # (AUTO) 0.6 (0.0-0.4); EOSINOPHILS % 2.1 % (0.0-6.0); HEMOGLOBIN 8.4 g/dL (14.0-18.0); LYMPHOCYTES % 10.4 % (18.0-39.1); MEAN CORPUSCULAR HEMOGLOBIN 28.5 pg (28-32); MEAN CORPUSCULAR HGB CONC 31.1 g/dL (31-35); MEAN CORPUSCULAR VOLUME 91.5 fL (81-99); MONOCYTES # (AUTO) 3.1 (0.2-0.8); MONOCYTES % 10.6 % (4.4-11.3); NEUTROPHILS # (AUTO) 19.1 (2.1-6.9); NEUTROPHILS % 65.5 % (38.7-80.0); PLATELET COUNT 267 x10e3/uL (140-360); RED BLOOD COUNT 2.95 x10e6/uL (4.3-5.7)
[2021-04-25 06:57] LABS: ALBUMIN 2.1 g/dL (3.5-5.0); ALBUMIN/GLOBULIN RATIO 0.5 (0.8-2.0); ANION GAP 18.8 mmol/L (8-16); CALCIUM 8.6 mg/dL (8.4-10.2); CREATININE, SERUM 2.72 mg/dL (0.72-1.25); POTASSIUM 3.8 mmol/L (3.5-5.1)
[2021-04-25] MEDS: NOREPINEPHRINE 8 MG/D5W 250 ML 250 ML IV SCH ×3 (07:23→21:12)
[2021-04-25] MEDS: BALSAM PERU/CASTOR OIL 60 GM OINT...G. TP SCH (09:06)
[2021-04-25] MEDS: FAMOTIDINE 20 MG/2 ML VIAL IV SCH ×2 (09:06→16:32)
[2021-04-25] MEDS: ZINC SULFATE 220 MG CAP PO SCH (09:06)
[2021-04-25 09:28] LABS: ABG HCO3 26 mmol/L (22-26); ABG PCO2 73 mmHg (35-45); ABG PH 7.16 (7.35-7.45); ABG PO2 71 mmHg (80-105); ABG TCO2 28
[2021-04-25] MEDS: LINEZOLID 600 MG/D5W 300ML 300 ML IV SCH ×2 (10:04→22:11)
[2021-04-25] MEDS: FLUCONAZOLE 200 MG/100 ML 100 ML IV SCH (11:12)
[2021-04-25] MEDS: HEPARIN 25,000 UNIT 1,500 UNIT in DEXTROSE 5% 250ML 250 ML IV SCH (12:18)
[2021-04-25] MEDS: INSULIN GLARGINE 100 UNITS/ML VIAL SQ SCH (21:00)
[2021-04-26] VITALS (25 sets, daily range): BP systolic 84–107; BP diastolic 52–62
[2021-04-26] MEDS: NOREPINEPHRINE 8 MG/D5W 250 ML 250 ML IV SCH ×3 (00:30→20:42)
[2021-04-26] MEDS: CEFEPIME 1 GM in SODIUM CHLORIDE 0.9% 50ML 50 ML IV SCH ×3 (01:31→18:46)
[2021-04-26] MEDS: ROCURONIUM 1250MG/NS 250 250 ML IV PRN (01:31)
[2021-04-26] MEDS: PROPOFOL IV EMULSION 10MG/ML 100 ML IV PRN ×3 (02:44→21:44)
[2021-04-26] MEDS: METRONIDAZOLE 500MG/NS 100ML 100 ML IV SCH ×3 (04:12→20:41)
[2021-04-26] MEDS: MIDAZOLAM HCL 5MG/ML 10ML VIAL 100 ML IV PRN ×4 (04:13→20:25)
[2021-04-26] MEDS: INSULIN LISPRO 100 UNIT/1 ML 3ML VIAL SQ SCH ×4 (06:00→18:00)
[2021-04-26] MEDS: FENTANYL 2000MCG/NS 250 250 ML IV PRN ×3 (06:19→20:25)
[2021-04-26 06:52] LABS: BASOPHILS # (AUTO) 0.2 (0.0-0.1); BASOPHILS % 0.7 % (0.0-1.0); EOSINOPHILS # (AUTO) 0.5 (0.0-0.4); EOSINOPHILS % 1.7 % (0.0-6.0); HEMATOCRIT 26.7 % (38.2-49.6); HEMOGLOBIN 8.4 g/dL (14.0-18.0); LYMPHOCYTES # (AUTO) 3.4 (1.0-3.2); LYMPHOCYTES % 10.9 % (18.0-39.1); MEAN CORPUSCULAR HEMOGLOBIN 28.3 pg (28-32); MEAN CORPUSCULAR HGB CONC 31.5 g/dL (31-35); MEAN CORPUSCULAR VOLUME 89.9 fL (81-99); MONOCYTES # (AUTO) 3.6 (0.2-0.8); MONOCYTES % 11.4 % (4.4-11.3); NEUTROPHILS # (AUTO) 19.6 (2.1-6.9); PLATELET COUNT 304 x10e3/uL (140-360); RED BLOOD COUNT 2.97 x10e6/uL (4.3-5.7); RED CELL DISTRIBUTION WIDTH 20.5 % (11.7-14.4)
[2021-04-26 07:09] LABS: ALBUMIN 2.1 g/dL (3.5-5.0); ALBUMIN/GLOBULIN RATIO 0.4 (0.8-2.0); ANION GAP 19.8 mmol/L (8-16); CALCIUM 8.8 mg/dL (8.4-10.2); CREATININE, SERUM 3.14 mg/dL (0.72-1.25); POTASSIUM 4.8 mmol/L (3.5-5.1)
[2021-04-26] MEDS: FAMOTIDINE 20 MG/2 ML VIAL IV SCH ×2 (08:49→18:45)
[2021-04-26] MEDS: BALSAM PERU/CASTOR OIL 60 GM OINT...G. TP SCH (08:49)
[2021-04-26 08:56] LABS: ABG HCO3 22 mmol/L (22-26); ABG PCO2 67 mmHg (35-45); ABG PH 7.13 (7.35-7.45); ABG PO2 71 mmHg (80-105); ABG TCO2 24
[2021-04-26 09:08] LABS: EOSINOPHILS % (MANUAL) 2 % (0-7); LYMPHOCYTES % (MANUAL) 14 % (19-48); METAMYELOCYTES % (MANUAL) 1 % (0-0); MONOCYTES % (MANUAL) 7 % (3.4-9.0); MYELOCYTES % (MANUAL) 5 % (0-0); NEUTROPHILS % (MANUAL) 68 % (40-74); NUCLEATED RED BLOOD CELLS 32; PLATELET ESTIMATE ADEQUATE; PLATELET MORPHOLOGY COMMENT FEW GIANT
[2021-04-26 09:09] LABS: ANISOCYTOSIS MODERATE; POLYCHROMASIA MODERATE; RBC MORPHOLOGY COMMENT ABNORMAL
[2021-04-26] MEDS: LINEZOLID 600 MG/D5W 300ML 300 ML IV SCH ×2 (12:39→23:59)
[2021-04-26] MEDS: FLUCONAZOLE 200 MG/100 ML 100 ML IV SCH (12:40)
[2021-04-26] MEDS: INSULIN GLARGINE 100 UNITS/ML VIAL SQ SCH (21:49)
[2021-04-27] VITALS (23 sets, daily range): BP systolic 78–124; BP diastolic 51–72
[2021-04-27] MEDS: HEPARIN 25,000 UNIT 1,500 UNIT in DEXTROSE 5% 250ML 250 ML IV SCH (00:16)
[2021-04-27] MEDS: INSULIN LISPRO 100 UNIT/1 ML 3ML VIAL SQ SCH ×4 (00:17→17:51)
[2021-04-27] MEDS: NOREPINEPHRINE 8 MG/D5W 250 ML 250 ML IV SCH ×5 (00:35→17:12)
[2021-04-27] MEDS: MIDAZOLAM HCL 5MG/ML 10ML VIAL 100 ML IV PRN ×4 (01:10→17:26)
[2021-04-27] MEDS: CEFEPIME 1 GM in SODIUM CHLORIDE 0.9% 50ML 50 ML IV SCH ×3 (02:40→17:11)
[2021-04-27] MEDS: FENTANYL 2000MCG/NS 250 250 ML IV PRN ×3 (03:15→17:11)
[2021-04-27] MEDS: PROPOFOL IV EMULSION 10MG/ML 100 ML IV PRN ×3 (04:05→17:13)
[2021-04-27] MEDS: METRONIDAZOLE 500MG/NS 100ML 100 ML IV SCH ×2 (05:13→13:10)
[2021-04-27] MEDS ORDERED: PHENYLEPHRINE HCL IN 0.9% NACL 250 ML IV ONE (06:33)
[2021-04-27] MEDS: ROCURONIUM 1250MG/NS 250 250 ML IV PRN (06:35)
[2021-04-27 06:37] LABS: BASOPHILS # (AUTO) 0.1 (0.0-0.1); BASOPHILS % 0.4 % (0.0-1.0); EOSINOPHILS # (AUTO) 0.3 (0.0-0.4); EOSINOPHILS % 0.9 % (0.0-6.0); HEMOGLOBIN 8.9 g/dL (14.0-18.0); LYMPHOCYTES # (AUTO) 3.5 (1.0-3.2); LYMPHOCYTES % 11.2 % (18.0-39.1); MEAN CORPUSCULAR HEMOGLOBIN 28.5 pg (28-32); MEAN CORPUSCULAR HGB CONC 30.7 g/dL (31-35); MEAN CORPUSCULAR VOLUME 92.9 fL (81-99); MONOCYTES # (AUTO) 3.9 (0.2-0.8); MONOCYTES % 12.4 % (4.4-11.3); NEUTROPHILS # (AUTO) 19.5 (2.1-6.9); NEUTROPHILS % 61.5 % (38.7-80.0); PLATELET COUNT 328 x10e3/uL (140-360); RED BLOOD COUNT 3.12 x10e6/uL (4.3-5.7); RED CELL DISTRIBUTION WIDTH 21.3 % (11.7-14.4)
[2021-04-27] MEDS: PHENYLEPHRINE 10MG/ML VIAL 40 MG in DEXTROSE 5% 250ML 246 ML IV PRN ×2 (06:45→18:41)
[2021-04-27 07:04] LABS: ALBUMIN/GLOBULIN RATIO 0.4 (0.8-2.0); ANION GAP 22.4 mmol/L (8-16); CALCIUM 8.5 mg/dL (8.4-10.2); CREATININE, SERUM 3.6 mg/dL (0.72-1.25); POTASSIUM 5.4 mmol/L (3.5-5.1)
[2021-04-27 08:49] LABS: BAND NEUTROPHILS % (MANUAL) 1 %; LYMPHOCYTES % (MANUAL) 11 % (19-48); METAMYELOCYTES % (MANUAL) 4 % (0-0); MONOCYTES % (MANUAL) 5 % (3.4-9.0); MYELOCYTES % (MANUAL) 4 % (0-0); NEUTROPHILS % (MANUAL) 74 % (40-74); NUCLEATED RED BLOOD CELLS 52
[2021-04-27 08:50] LABS: ANISOCYTOSIS MARKED; PLATELET ESTIMATE ADEQUATE; PLATELET MORPHOLOGY COMMENT NORMAL; POLYCHROMASIA MODERATE; RBC MORPHOLOGY COMMENT ABNORMAL
[2021-04-27 08:51] LABS: HYPOCHROMASIA MODERATE
[2021-04-27] MEDS: FAMOTIDINE 20 MG/2 ML VIAL IV SCH ×2 (08:57→17:11)
[2021-04-27] MEDS: BALSAM PERU/CASTOR OIL 60 GM OINT...G. TP SCH (08:57)
[2021-04-27] MEDS ORDERED: SODIUM BICARBONATE 8.4% INJ 50 ML SYR IV ONE (09:00)
[2021-04-27 09:09] LABS: ABG PH 6.98 (7.35-7.45)
[2021-04-27 09:10] LABS: ABG HCO3 19 mmol/L (22-26); ABG PCO2 82 mmHg (35-45); ABG PO2 46 mmHg (80-105); ABG TCO2 22
[2021-04-27] MEDS: VASOPRESSIN 60 UNIT in DEXTROSE 5% 50ML 57 ML IV PRN ×2 (10:08→17:26)
[2021-04-27] MEDS: LINEZOLID 600 MG/D5W 300ML 300 ML IV SCH (10:15)
[2021-04-27] MEDS: FLUCONAZOLE 200 MG/100 ML 100 ML IV SCH (11:40)
[2021-04-27] MEDS ORDERED: SOD POLYSTYRENE SULFONATE SUSP 15 GM/60 ML BTL PO ONE (12:30)
[2021-04-27] MEDS ORDERED: DEXTROSE 50% SYRINGE 50 ML IV ONE ×2 (12:30→14:00)
[2021-04-27] MEDS ORDERED: INSULIN REGULAR, HUMAN 100 UNIT/1 ML IV ONE (12:30)
[2021-04-27] MEDS ORDERED: SODIUM CHLORIDE 3% 120 ML IV ONE (18:40)
== END 2021-04-27 21:48 | disposition expired | DRG 870 ==
LOC: ER 11:22 → ERHOLD 11:32 → ICU 03-29 20:45 → COVIDICU 04-05 11:47
PROVIDERS: ADMIT Internal Medicine; ATTEND Internal Medicine
PROC: 3E0333Z Introduction of Anti-inflammatory into Peripheral Vein, Percutaneous Approach (ICD-10-PCS; 2021-03-26)
PROC: XW033E5 Introduction of Remdesivir Anti-infective into Peripheral Vein, Percutaneous Approach, New Technology Group 5 (ICD-10-PCS; 2021-03-26)
PROC: 02HV33Z Insertion of Infusion Device into Superior Vena Cava, Percutaneous Approach (ICD-10-PCS; 2021-03-29)
PROC: 5A1955Z Respiratory Ventilation, Greater than 96 Consecutive Hours (ICD-10-PCS; principal; 2021-04-05)
PROC: 0BH17EZ Insertion of Endotracheal Airway into Trachea, Via Natural or Artificial Opening (ICD-10-PCS; 2021-04-05)
PROC: 3E043XZ Introduction of Vasopressor into Central Vein, Percutaneous Approach (ICD-10-PCS; 2021-04-05)
PROC: 03HB33Z Insertion of Infusion Device into Right Radial Artery, Percutaneous Approach (ICD-10-PCS; 2021-04-07)
PROC: 02HV33Z Insertion of Infusion Device into Superior Vena Cava, Percutaneous Approach (ICD-10-PCS; 2021-04-10)
PROC: 02HV33Z Insertion of Infusion Device into Superior Vena Cava, Percutaneous Approach (ICD-10-PCS; 2021-04-21)
PROC: B548ZZA Ultrasonography of Superior Vena Cava, Guidance (ICD-10-PCS; 2021-04-21)
PROC: 5A1D70Z Performance of Urinary Filtration, Intermittent, Less than 6 Hours Per Day (ICD-10-PCS; 2021-04-21)
DX: A41.89 Other specified sepsis (principal); U07.1 COVID-19; J12.82 Pneumonia due to coronavirus disease 2019; J96.01 Acute respiratory failure with hypoxia; R65.21 Severe sepsis with septic shock; J15.9 Unspecified bacterial pneumonia; K72.00 Acute and subacute hepatic failure without coma; E44.0 Moderate protein-calorie malnutrition; N17.9 Acute kidney failure, unspecified; I82.B11 Acute embolism and thrombosis of right subclavian vein; Z87.891 Personal history of nicotine dependence; E66.9 Obesity, unspecified; Z68.31 Body mass index [BMI] 31.0-31.9, adult; E87.6 Hypokalemia; D64.9 Anemia, unspecified; R53.81 Other malaise; R51.9 Headache, unspecified; K21.9 Gastro-esophageal reflux disease without esophagitis
CPT/HCPCS: 36415; 36569; 36600; 51700; 70450; 71045; 71260; 74018; 74177; 74470; 76700; 80048; 80053; 80061; 82607; 82746; 82805; 82948; 83036; 83540; 83605; 83735; 84466; 84484; 85025; 85045; 85384; 85610; 85730; 86140; 86705; 86706; 87040; 87070; 87205; 87340; 90962; 93005; 93970; 94002; 94003; 94660; 99251; 99285; J0330; J0456; J0692; J0696; J1100; J1450; J1644; J1650; J1815; J1817; J1940; J2020; J2150; J2250; J2370; J2405; J2543; J7030; J7050; J7121; J7799; P9047; Q9967; U0002